=== PATIENT | female | born 1950 | race Caucasian/White ===

== ENCOUNTER 2024-01-18 15:21 | Emergency (ER) | payer MEDICARE, OTHER, SELFPAY ==
[2024-01-18 15:28] VITALS: BP 96/68
[2024-01-18 15:55] LABS: % Basophils 0.6 % (0-2); % Eosinophils 1.7 % (0-6); % Immature Granulocytes 0.3 % (0-0.5); % Lymphocytes 36.9 % (20.5-51.1); % Monocytes 6.3 % (1.7-9.3); % Neutrophils 54.2 % (42.2-75.2); Absolute Basophils 0.1 10^3/uL (0-0.2); Absolute Eosinophils 0.2 10^3/uL (0-0.7); Absolute Lymphocytes 3.8 10^3/uL (1.2-3.4); Absolute Monocytes 0.7 10^3/uL (0.1-0.6); Absolute Neutrophils 5.6 10^3/uL (1.4-6.5); Hematocrit 46.1 % (37.0-47.0); Hemoglobin 16.2 g/dL (12.0-16.0); Mean Corp Hgb Conc. 35.1 g/dL (33.0-37.0); Mean Corpuscular Hgb 30.8 pg (27.0-31.0); Mean Corpuscular Volume 87.6 fL (81.0-99.0); Mean Platelet Volume 11.9 fL (7.4-10.4); Nucleated Red Blood Cells % 0 %; Platelet Count 236 10^3/uL (130-400); Red Blood Cell Count 5.26 10^6/uL (4.20-5.40); Red Cell Dist. Width 12.8 % (11.5-14.5); White Blood Cell Count 10.3 10^3/uL (4.8-10.8)
[2024-01-18 16:01] LABS: ALT (SGPT) 32 U/L (0-35); AST (SGOT) 34 U/L (14-36); Albumin 5.4 g/dl (3.5-5.0); Alkaline Phosphatase 101 U/L (38-126); Blood Urea Nitrogen 29 mg/dl (7-17); Calcium 10.8 mg/dl (8.4-10.2); Carbon Dioxide 26 mmol/L (22-30); Chloride 101 mmol/L (98-107); Glucose 195 mg/dl (70-99); Lipase 76 U/L (23-300); Potassium 4.2 mmol/L (3.5-5.1); Sodium 139 mmol/L (135-145); Total Bilirubin 0.9 mg/dl (0.2-1.3); Total Protein 7.8 g/dl (6.3-8.2); eGFR > 60.00
--- NOTE | 2024-01-18 17:20 | EDRN ---
the pt was brought back to ED Bed #8 via wheel chair moaning in pain, the pt got up out of wheel chair and walked into the bathroom to have a bowel movement, the pt stated to this RN, 'Help me help me i am cold i am cold please get me warm blankets,
please get me warm blankets', the pt was able to ambulate back to the stretcher, the pt got comfortable in the stretcher with patient gown on, and this RN started to hook the pt up to the monitor, while this RN was placing the pt on the cardiac
monitor the pt stated to this RN, 'Oh oh i have to poop i have to poop please help me i have to poop right now let me get up', this RN unhooked the pt from the monitor and the pt hurried into the bathroom, will continue to monitor the pt closely
[2024-01-18 17:59] VITALS: BP 131/71; BMI 25.7
[2024-01-18 18:08] VITALS: BP 148/58
[2024-01-18 19:00] VITALS: BP 150/60
--- NOTE | 2024-01-18 19:18 | ED.GENMED ---
History of Present Illness
General
Chief Complaint: Abdominal Pain
Source: patient
Time Seen by Provider: 01/18/24 19:04
History of Present Illness
History of Present Illness:
73-year-old female presents to the emergency room complaining of abdominal pain. Patient states that she has a history of pancreatitis and was concerned that she was having an exacerbation. Patient states the pain is generalized. Began today.
She has nausea but has not been vomiting. She was able to tolerate liquids throughout the day. She denies alcohol use. Patient has had some diarrhea but none recently. Patient states when she has pancreatitis her white blood cell count is
typically very high and her potassium level gets very low.
Past History
Past History
ED Past Medical History: HTN, Hypercholesterolemia, Psychiatric (Anxiety, Depression) and Other (Pancreatitis, Eczema)
ED Past Surgical History: Cholecystectomy, and Orthopedic (Surendra carpal tunnel, rotator cuff, R wrist surgery)
Social History
Tobacco: Former smoker
Alcohol: None
Drug: None
Personal: Single
Living: alone
Employment: Retired
Family History
Family History: Other (Noncontributory)
Phy Exam
Physical Exam
Physical Exam:
General: Awake, Alert, Oriented X3. No acute distress.
Vitals: unremarkable
Head: Atraumatic
Eyes: Pupils equal, EOMI
Throat: Airway intact, no exudates
Neck: Trachea midline
Lungs: Clear and equal b/l
Heart: Regular rate, no murmurs
Abd: Soft, mild suprapubic tenderness with palpable bladder patient states she needs to urinate badly at the time of my examination, no pulsatile mass
Neuro: Nonfocal
Skin: Warm, dry, no rash
Extremities: pulses equal b/l, no edema
Course
Orders/Labs/Results
Orders:
Orders
01/18/24 15:40
Complete Blood Count/With Diff Urgent
Comprehensive Metabolic Panel Urgent
Lipase Urgent
Abnormal Lab Results
01/18/24
15:40
Hgb 16.2 H g/dL
(12.0-16.0)
MPV 11.9 H fL
(7.4-10.4)
Absolute Lymphs (auto) 3.8 H 10^3/uL
(1.2-3.4)
Absolute Monos (auto) 0.7 H 10^3/uL
(0.1-0.6)
BUN 29 H mg/dl
(7-17)
Glucose 195 H mg/dl
(70-99)
Calcium 10.8 H mg/dl
(8.4-10.2)
Albumin 5.4 H g/dl
(3.5-5.0)
01/18/24 15:40
01/18/24 15:40
Vital Signs
Initial and Last Documented VS:
Initial Vital Signs
Pulse Resp BP Pulse Ox
62 24 96/68 97
01/18/24 15:28 01/18/24 15:28 01/18/24 15:28 01/18/24 15:28
Last Documented Vital Signs
Temp Pulse Resp BP Pulse Ox
98.1 F 59 21 148/58 97
01/18/24 17:59 01/18/24 18:30 01/18/24 18:30 01/18/24 18:08 01/18/24 18:30
MDM/Problems Addressed
Differential Diagnosis Includes:
Pancreatitis, appendicitis, diverticulitis, gastroenteritis
MDM/Problems Addressed:
Patient's labs are normal. Patient states that she feels better now than when she first arrived. She is reassured that her labs do not show an elevated lipase, high white blood cell count or low potassium. Discussed obtaining a CT scan of her
abdomen pelvis which she declines because she has had several in the past. Because she is feeling better she would like to be discharged home.
*Pulse Oximetry
Patient hypoxic: no
*Critical Care Note
Total Time (30-74mins, 75-104mins- exclusive of procedures): Not Applicable
ED Attending Note
-
Portions of this chart may have been created with voice recognition software.� Occasional wrong word or��sound alike� substitutions may have occurred due to the inherent limitations of voice recognition software.
Discharge Plan
Departure
Patient Disposition: Home (Routine Discharge)
Date of Disposition: 01/18/24
Time of Disposition: 19:18
Patient with high blood pressure during this ER visit?: No
Condition: Good
Discharge Problem:
Unspecified abdominal pain
Instructions: Abdominal Pain
Prescriptions:
No Action
aspirin 81 MG tablet,delayed release (DR/EC)
81 mg PO DAILY
ezetimibe 10 MG tablet
10 mg PO DAILY
rosuvastatin 20 MG tablet
20 mg PO DAILY
quetiapine [Seroquel] 300 MG tablet
150 mg PO HS
calcium carbonate 600 MG tablet
1,200 mg PO DAILY
amlodipine 10 MG tablet
10 mg PO DAILY
K2 Plus D3 1 EACH tablet
2,500 mcg PO DAILY
biotin 1,000 MCG tablet,chewable
1,500 mcg PO DAILY
citalopram 20 MG tablet
20 mg PO DAILY
finasteride 1 MG tablet
1 mg PO DAILY
metoprolol succinate [Toprol XL] 50 mg Tablet Extended Release 24 Hr
50 mg PO DAILY
cetirizine [Zyrtec] 10 mg Tablet
10 mg PO QPM
fexofenadine 180 mg Tablet
180 mg PO DAILY
pantoprazole 40 mg Tablet,Delayed Release (Dr/Ec)
40 mg PO DAILY
potassium chloride 20 mEq tablet extended release
20 meq PO BID Qty: 8 0RF
hydromorphone [Dilaudid] 2 mg tablet
2 mg PO Q6H PRN (Reason: Pain) Qty: 5 0RF
Activity Restrictions/Additional Instructions:
Please follow up with your primary care provider and return to ER if symptoms worsen.
Interventions
Interventions:
*Risk Screen - Suicide Last Done: 01/18/24 17:59
*General Assessment Last Done: 01/18/24 17:59
*Neglect/Abuse Screening Last Done: 01/18/24 17:59
ED- Fall Risk Assessment Last Done: 01/18/24 17:59
*ED COVID-19 Vaccine History Last Done: 01/18/24 17:59
BK-Rfuome-Awljqrjvlz Assessment Last Done: 01/18/24 17:59
Discharge Date and Time
Print Language: JAPANESE
[2024-01-18] MEDS: TYLENOL 1000 MG PO (19:40)
== END 2024-01-18 19:56 | disposition home or self-care (01) ==
LOC: EMR 15:21
PROVIDERS: Emergency Medicine; EMERGENCY PHYSICIAN Emergency Medicine; FAMILY PHYSICIAN Internal Medicine
DX: R10.84 Generalized abdominal pain (principal); I10 Essential (primary) hypertension; E78.00 Pure hypercholesterolemia, unspecified; K86.1 Other chronic pancreatitis; F32.A Depression, unspecified; F41.9 Anxiety disorder, unspecified; L30.9 Dermatitis, unspecified; Z90.49 Acquired absence of other specified parts of digestive tract; Z87.891 Personal history of nicotine dependence
CPT/HCPCS: 99283; 80053; 83690; 85025

== ENCOUNTER 2024-01-29 01:11 | Inpatient (IN) | payer MEDICARE, OTHER, SELFPAY ==
[2024-01-28] VITALS (7 sets, daily range): BP systolic 125–180; BP diastolic 61–129; BMI 25.6
[2024-01-28 18:30] LABS: % Basophils 0.2 % (0-2); % Eosinophils 0.1 % (0-6); % Immature Granulocytes 0.6 % (0-0.5); % Monocytes 5.8 % (1.7-9.3); % Neutrophils 78.3 % (42.2-75.2); Absolute Immature Granulocytes 0.1 10^3/uL (0-0.05); Absolute Lymphocytes 2.5 10^3/uL (1.2-3.4); Absolute Neutrophils 13.3 10^3/uL (1.4-6.5); Hematocrit 47.7 % (37.0-47.0); Hemoglobin 17.4 g/dL (12.0-16.0); Mean Corp Hgb Conc. 36.5 g/dL (33.0-37.0); Mean Corpuscular Hgb 30.2 pg (27.0-31.0); Mean Corpuscular Volume 82.7 fL (81.0-99.0); Mean Platelet Volume 11.4 fL (7.4-10.4); Nucleated Red Blood Cells % 0 %; Platelet Count 246 10^3/uL (130-400); Red Blood Cell Count 5.77 10^6/uL (4.20-5.40)
[2024-01-28 19:01] LABS: Alkaline Phosphatase 155 U/L (38-126); Blood Urea Nitrogen 22 mg/dl (7-17); Calcium 10.4 mg/dl (8.4-10.2); Carbon Dioxide 25 mmol/L (22-30); Chloride 95 mmol/L (98-107); Estimated Creatinine Clearance 44 ml/min; Glucose 157 mg/dl (70-99); Lipase 342 U/L (23-300); Potassium 3.4 mmol/L (3.5-5.1); Sodium 134 mmol/L (135-145); Total Bilirubin 1.5 mg/dl (0.2-1.3); Total Protein 7.4 g/dl (6.3-8.2); eGFR > 60.00
[2024-01-28 19:17] LABS: ALT (SGPT) 992 U/L (0-35)
[2024-01-28 19:34] LABS: AST (SGOT) 789 U/L (14-36)
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
[2024-01-28] MEDS: NSS 1000 IV (19:51)
[2024-01-28] MEDS: DILAUDID 0.5 MG IV ×2 (19:54→22:00)
[2024-01-28 20:17] LABS: Acetaminophen < 10 ug/ml (10-30)
[2024-01-28 20:21] LABS: INR 1.06; PT 13.6 Sec (11.4-14.6)
[2024-01-28] MEDS: ZOFRAN 4 MG IV ×2 (20:38→22:13)
[2024-01-28 20:46] LABS: APTT 22.8 Sec (23.4-35.0)
[2024-01-29] VITALS (8 sets, daily range): BP systolic 116–167; BP diastolic 54–75; PULSE 63–64; O2SAT 98; BMI 24.3; BMI 24.5
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
[2024-01-29] MEDS: LR 1000 IV ×3 (02:36→19:21)
[2024-01-29] MEDS: TORADOL 10 MG IV ×3 (02:39→16:23)
[2024-01-29] MEDS: SENOKOT 17.2 MG PO ×2 (02:47→22:28)
[2024-01-29 05:27] LABS: Hematocrit 43.4 % (37.0-47.0); Hemoglobin 15.3 g/dL (12.0-16.0); Mean Corp Hgb Conc. 35.3 g/dL (33.0-37.0); Mean Corpuscular Hgb 30.8 pg (27.0-31.0); Mean Corpuscular Volume 87.3 fL (81.0-99.0); Mean Platelet Volume 11.7 fL (7.4-10.4); Platelet Count 174 10^3/uL (130-400); Red Blood Cell Count 4.97 10^6/uL (4.20-5.40); Red Cell Dist. Width 12.9 % (11.5-14.5); White Blood Cell Count 15.2 10^3/uL (4.8-10.8)
[2024-01-29 05:43] LABS: ALT (SGPT) 703 U/L (0-35); AST (SGOT) 404 U/L (14-36); Albumin 3.9 g/dl (3.5-5.0); Alkaline Phosphatase 120 U/L (38-126); Chloride 99 mmol/L (98-107); Direct Bilirubin 0.1 mg/dl (0.0-0.4); Estimated Creatinine Clearance 39 ml/min; Potassium 3.1 mmol/L (3.5-5.1); Sodium 135 mmol/L (135-145); Total Bilirubin 1.3 mg/dl (0.2-1.3); eGFR > 60.00
[2024-01-29 05:54] LABS: Blood Urea Nitrogen 22 mg/dl (7-17); Calcium 9.3 mg/dl (8.4-10.2); Carbon Dioxide 31 mmol/L (22-30); Glucose 109 mg/dl (70-99); Magnesium 1.9 mg/dl (1.6-2.3); Phosphorus 3.8 mg/dl (2.5-4.5)
[2024-01-29] MEDS: TOPROL XL 50 MG PO (09:21)
[2024-01-29] MEDS: ASPIR LOW (ENTERIC COATED) 81 MG PO (09:21)
[2024-01-29] MEDS: COLACE 100 MG PO ×2 (09:21→22:28)
[2024-01-29] MEDS: TYLENOL 1000 MG PO ×3 (09:22→22:28)
[2024-01-29] MEDS: NSS (PRESERVATIVE FREE) 10 ML IV (09:25)
[2024-01-29] MEDS: PROTONIX IV 40 MG IV (09:25)
[2024-01-29] MEDS: CELEXA 20 MG PO (09:29)
[2024-01-29] MEDS: DILAUDID 0.5 MG IV ×2 (10:10→22:32)
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
[2024-01-29 12:02] LABS: Salicylate < 1.0 mg/dl (2.0-20.0)
[2024-01-29] MEDS: FLEXERIL 5 MG PO (12:32)
[2024-01-30] MEDS: LR 1000 IV ×3 (02:44→22:56)
[2024-01-30 05:05] VITALS: BMI 24.9
[2024-01-30] MEDS: FLEXERIL 5 MG PO ×2 (06:12→15:58)
[2024-01-30] MEDS: DILAUDID 0.5 MG IV ×2 (06:12→21:45)
[2024-01-30 07:20] VITALS: BP 106/70
[2024-01-30] MEDS: TOPROL XL 50 MG PO (08:38)
[2024-01-30] MEDS: CELEXA 20 MG PO (08:38)
[2024-01-30] MEDS: NSS (PRESERVATIVE FREE) 10 ML IV (08:39)
[2024-01-30] MEDS: COLACE 100 MG PO ×2 (08:39→20:24)
[2024-01-30] MEDS: ASPIR LOW (ENTERIC COATED) 81 MG PO (08:39)
[2024-01-30] MEDS: TYLENOL 1000 MG PO ×3 (08:39→21:10)
[2024-01-30] MEDS: PROTONIX IV 40 MG IV (08:40)
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
[2024-01-30 11:54] LABS: Hematocrit 38.7 % (37.0-47.0); Hemoglobin 13.6 g/dL (12.0-16.0); Mean Corp Hgb Conc. 35.1 g/dL (33.0-37.0); Mean Corpuscular Hgb 30.3 pg (27.0-31.0); Mean Corpuscular Volume 86.2 fL (81.0-99.0); Mean Platelet Volume 11.5 fL (7.4-10.4); Platelet Count 175 10^3/uL (130-400); Red Blood Cell Count 4.49 10^6/uL (4.20-5.40); Red Cell Dist. Width 12.7 % (11.5-14.5); White Blood Cell Count 11.9 10^3/uL (4.8-10.8)
--- NOTE | 2024-01-30 11:57 | CM ---
Reviewed the chart notes and spoke with the patient at the bedside. The patient resides alone in a 2 story home with one step to enter. The patient has a first floor master suite. The patient reports no DME/VN/SNF in the past. The patient
confirmed her pharmacy of choice is the [facility]. PT recommending SNF. Discuss with the patient PT's recommendation from yesterday's evaluation. Patient resides alone and does not have family in the area. Patient became hysterical,
crying , pulling at her hair, and pounding the bed with her fists screaming 'I'm not going to live in a alf'. CM attempt to calm the patient with discussing that if the pain is better controlled at discharge she may then benefit from
going home with in-home PT/OT. Patient willing to work with PT during her stay to be able to return home. CM continues to be available to patient/family and is monitoring medical plan for needs at discharge.
Plan: Discharge plans will depend on the patient's progress.
[2024-01-30 12:07] LABS: ALT (SGPT) 465 U/L (0-35); AST (SGOT) 232 U/L (14-36); Albumin 3.5 g/dl (3.5-5.0); Alkaline Phosphatase 146 U/L (38-126); Direct Bilirubin 0.1 mg/dl (0.0-0.4); Total Protein 5.6 g/dl (6.3-8.2)
[2024-01-30 12:48] LABS: Blood Urea Nitrogen 12 mg/dl (7-17); Calcium 8.8 mg/dl (8.4-10.2); Carbon Dioxide 33 mmol/L (22-30); Chloride 99 mmol/L (98-107); Estimated Creatinine Clearance 51 ml/min; Glucose 96 mg/dl (70-99); Potassium 2.7 mmol/L (3.5-5.1); Sodium 135 mmol/L (135-145); eGFR > 60.00
[2024-01-30 13:45] VITALS: BP 149/71; PULSE 58; O2SAT 98
[2024-01-30] MEDS: KCL 40 MEQ PO ×2 (13:58→15:55)
[2024-01-30] MEDS: KLONOPIN 1 MG PO (13:59)
[2024-01-30 14:37] VITALS: BP 149/71; PULSE 58; O2SAT 98
[2024-01-30 15:25] VITALS: BP 149/61
[2024-01-30] MEDS: HEPARIN 5000 UNITS SC ×2 (16:04→23:01)
[2024-01-30] MEDS: SENOKOT 17.2 MG PO (20:24)
[2024-01-30 20:35] LABS: Hepatitis B Surface Antigen Negative (Negative)
[2024-01-30 20:52] LABS: Hepatitis B Surface Antibody Negative; Hepatitis C Antibody Negative (Negative)
[2024-01-30] MEDS: ZOFRAN 4 MG IV (21:44)
[2024-01-30 23:02] VITALS: BP 162/84
[2024-01-30 23:11] VITALS: BP 192/88
[2024-01-31 00:27] LABS: Hepatitis A IgM Antibody Negative (Negative)
--- NOTE | 2024-01-31 01:01 | PTCARENOTE ---
Pt was nauseous after eating dinner as well with dealing with increased 8/10 back pain. PRN Zofran and Dilaudid provided per SEP.
[2024-01-31] MEDS: FLEXERIL 5 MG PO ×2 (04:55→18:27)
[2024-01-31 05:03] VITALS: BMI 25.3
[2024-01-31 05:46] VITALS: BP 179/84
[2024-01-31] MEDS: TOPROL XL 50 MG PO (05:56)
[2024-01-31] MEDS: TORADOL 10 MG IV ×2 (05:56→15:09)
[2024-01-31] MEDS: LR 1000 IV ×3 (05:59→23:13)
--- NOTE | 2024-01-31 05:59 | W.PN.UPDATE ---
Update Note
Progress Note Update
BP noted now to be >160 systolic. Added back home dose of amlodipine which had been held due to borderline hypotension on admission.
--- NOTE | 2024-01-31 06:04 | PTCARENOTE ---
BPs elevated overnight- pts pain level ranged anywhere from a 6-9/10. PRNs were given routinely. CHENG Garcia OK'd to give 0800 Toprol XL 50mg early and added her home Norvasc to the MAR.
[2024-01-31 06:52] LABS: Hematocrit 47.6 % (37.0-47.0); Hemoglobin 16.7 g/dL (12.0-16.0); Mean Corp Hgb Conc. 35.1 g/dL (33.0-37.0); Mean Corpuscular Hgb 30.8 pg (27.0-31.0); Mean Corpuscular Volume 87.7 fL (81.0-99.0); Mean Platelet Volume 11.6 fL (7.4-10.4); Platelet Count 193 10^3/uL (130-400); Red Blood Cell Count 5.43 10^6/uL (4.20-5.40); Red Cell Dist. Width 12.5 % (11.5-14.5); White Blood Cell Count 12.5 10^3/uL (4.8-10.8)
[2024-01-31 06:58] LABS: ALT (SGPT) 392 U/L (0-35); AST (SGOT) 90 U/L (14-36); Albumin 4.4 g/dl (3.5-5.0); Alkaline Phosphatase 164 U/L (38-126); Blood Urea Nitrogen 10 mg/dl (7-17); Calcium 9.8 mg/dl (8.4-10.2); Carbon Dioxide 35 mmol/L (22-30); Chloride 93 mmol/L (98-107); Estimated Creatinine Clearance 59 ml/min; Glucose 131 mg/dl (70-99); Potassium 3.4 mmol/L (3.5-5.1); Sodium 135 mmol/L (135-145); Total Bilirubin 0.7 mg/dl (0.2-1.3); Total Protein 6.9 g/dl (6.3-8.2); eGFR > 60.00
[2024-01-31 07:30] VITALS: BP 174/85
[2024-01-31] MEDS: COLACE 100 MG PO ×2 (08:58→21:06)
[2024-01-31] MEDS: ASPIR LOW (ENTERIC COATED) 81 MG PO (08:58)
[2024-01-31] MEDS: NSS (PRESERVATIVE FREE) 10 ML IV (08:58)
[2024-01-31] MEDS: CELEXA 20 MG PO (08:58)
[2024-01-31] MEDS: PROTONIX IV 40 MG IV (08:58)
[2024-01-31] MEDS: TYLENOL 1000 MG PO ×3 (08:58→21:06)
[2024-01-31] MEDS: NORVASC 10 MG PO (08:59)
[2024-01-31] MEDS: HEPARIN 5000 UNITS SC ×3 (08:59→23:14)
[2024-01-31] MEDS: KCL 40 MEQ PO (09:19)
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
[2024-01-31] MEDS: MIRALAX 34 GRAMS PO (12:08)
[2024-01-31 12:36] VITALS: BP 121/55; O2SAT 98
--- NOTE | 2024-01-31 14:41 | CM ---
Reviewed the chart notes and spoke with the patient at the bedside. Attempted to discuss area SNFs/rehab. Patient very upset, again pulling on hair and stating 'I'm not ready to discharge' and 'I only want to go to a facility that specializes in
backs'. CM attempted to explain that all PTs are educated and trained to rehab all parts of the body. Provided list of area SNFs to the patient. Patient wants to speak with her niece before she provides the CM with a list of acceptable facilities
for referral. Patient did request a referral be sent to [facility]. Referral will be sent. CM continues to be available to patient/family and is monitoring medical plan for needs at discharge.
Plan: Discharge to SNF/rehab once bed found.
[2024-01-31 15:42] VITALS: BP 112/58
[2024-01-31] MEDS: SENOKOT 17.2 MG PO (21:06)
[2024-01-31] MEDS: DULCOLAX 10 MG RECTAL (23:13)
[2024-01-31 23:16] VITALS: BP 191/76
[2024-02-01] MEDS: TORADOL 10 MG IV ×3 (01:00→23:23)
[2024-02-01 02:26] VITALS: BP 160/80
[2024-02-01 06:00] VITALS: BMI 25.2
[2024-02-01 06:49] LABS: Hematocrit 44.6 % (37.0-47.0); Hemoglobin 16.1 g/dL (12.0-16.0); Mean Corp Hgb Conc. 36.1 g/dL (33.0-37.0); Mean Corpuscular Hgb 30.4 pg (27.0-31.0); Mean Corpuscular Volume 84.2 fL (81.0-99.0); Mean Platelet Volume 11.8 fL (7.4-10.4); Platelet Count 215 10^3/uL (130-400); Red Cell Dist. Width 12.6 % (11.5-14.5); White Blood Cell Count 15.1 10^3/uL (4.8-10.8)
[2024-02-01 07:22] LABS: ALT (SGPT) 218 U/L (0-35); AST (SGOT) 38 U/L (14-36); Albumin 3.8 g/dl (3.5-5.0); Alkaline Phosphatase 131 U/L (38-126); Blood Urea Nitrogen 17 mg/dl (7-17); Calcium 9.4 mg/dl (8.4-10.2); Carbon Dioxide 31 mmol/L (22-30); Chloride 95 mmol/L (98-107); Estimated Creatinine Clearance 59 ml/min; Glucose 103 mg/dl (70-99); Potassium 3.1 mmol/L (3.5-5.1); Sodium 134 mmol/L (135-145); Total Bilirubin 0.8 mg/dl (0.2-1.3); Total Protein 6.2 g/dl (6.3-8.2); eGFR > 60.00
[2024-02-01 07:25] VITALS: BP 114/58
[2024-02-01] MEDS: LR 1000 IV ×2 (07:36→09:29)
[2024-02-01] MEDS: TYLENOL 1000 MG PO ×3 (09:25→21:14)
[2024-02-01] MEDS: KCL 40 MEQ PO ×2 (09:25→12:31)
[2024-02-01] MEDS: TOPROL XL 50 MG PO (09:26)
[2024-02-01] MEDS: ASPIR LOW (ENTERIC COATED) 81 MG PO (09:26)
[2024-02-01] MEDS: COLACE 100 MG PO ×2 (09:27→21:13)
[2024-02-01] MEDS: MIRALAX 17 GRAMS PO (09:27)
[2024-02-01] MEDS: NORVASC 10 MG PO (09:27)
[2024-02-01] MEDS: CELEXA 20 MG PO (09:27)
[2024-02-01] MEDS: NSS (PRESERVATIVE FREE) 10 ML IV (09:28)
[2024-02-01] MEDS: HEPARIN 5000 UNITS SC ×3 (09:28→23:51)
[2024-02-01] MEDS: PROTONIX IV 40 MG IV (09:28)
[2024-02-01] MEDS: ZOFRAN 4 MG IV ×2 (10:40→23:09)
[2024-02-01] MEDS: ROXICODONE 5 MG PO ×3 (10:45→21:14)
[2024-02-01 12:15] VITALS: BP 139/104; PULSE 57; O2SAT 97
[2024-02-01 12:20] VITALS: BP 139/104; PULSE 55; O2SAT 98
[2024-02-01] MEDS: LIDOCAINE 4% PATCH 1 PATCH TOPICAL (12:32)
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
--- NOTE | 2024-02-01 15:19 | CM ---
Reviewed the chart notes and spoke with the patient at the bedside. Referrals sent to [facility], [facility] and [facility]. [facility] no beds. Awaiting on [facility] and [facility]. CM continues to be available to patient/family and is monitoring medical plan for needs at
discharge.
Plan: Discharge to SNF/rehab once bed found. No precert required.
[2024-02-01 15:20] VITALS: BP 153/70
[2024-02-01] MEDS: KLONOPIN 1 MG PO (16:35)
[2024-02-01] MEDS: SENOKOT 17.2 MG PO (21:13)
[2024-02-01] MEDS: FLEXERIL 5 MG PO (22:24)
[2024-02-01 23:17] VITALS: BP 146/80
[2024-02-02 05:26] VITALS: BMI 25.3
[2024-02-02] MEDS: ROXICODONE 5 MG PO ×2 (05:44→15:23)
[2024-02-02 07:30] VITALS: BP 156/75
[2024-02-02 07:30] LABS: Hematocrit 46.9 % (37.0-47.0); Hemoglobin 17.2 g/dL (12.0-16.0); Mean Corp Hgb Conc. 36.7 g/dL (33.0-37.0); Mean Corpuscular Hgb 30.4 pg (27.0-31.0); Mean Platelet Volume 10.8 fL (7.4-10.4); Platelet Count 244 10^3/uL (130-400); Red Blood Cell Count 5.65 10^6/uL (4.20-5.40); Red Cell Dist. Width 12.9 % (11.5-14.5); White Blood Cell Count 11.4 10^3/uL (4.8-10.8)
[2024-02-02 08:02] LABS: ALT (SGPT) 163 U/L (0-35); AST (SGOT) 31 U/L (14-36); Albumin 4.5 g/dl (3.5-5.0); Alkaline Phosphatase 143 U/L (38-126); Blood Urea Nitrogen 14 mg/dl (7-17); Calcium 10.1 mg/dl (8.4-10.2); Carbon Dioxide 29 mmol/L (22-30); Chloride 93 mmol/L (98-107); Estimated Creatinine Clearance 59 ml/min; Glucose 122 mg/dl (70-99); Potassium 3.7 mmol/L (3.5-5.1); Sodium 133 mmol/L (135-145); Total Bilirubin 0.6 mg/dl (0.2-1.3); Total Protein 7.1 g/dl (6.3-8.2); eGFR > 60.00
[2024-02-02] MEDS: LIDOCAINE 4% PATCH 1 PATCH TOPICAL (09:42)
[2024-02-02] MEDS: NSS (PRESERVATIVE FREE) 10 ML IV (09:43)
[2024-02-02] MEDS: NORVASC 10 MG PO (09:43)
[2024-02-02] MEDS: ASPIR LOW (ENTERIC COATED) 81 MG PO (09:43)
[2024-02-02] MEDS: PROTONIX IV 40 MG IV (09:43)
[2024-02-02] MEDS: TOPROL XL 50 MG PO (09:44)
[2024-02-02] MEDS: TYLENOL 1000 MG PO ×2 (09:44→15:04)
[2024-02-02] MEDS: COLACE 100 MG PO (09:44)
[2024-02-02] MEDS: HEPARIN 5000 UNITS SC ×2 (09:44→15:04)
[2024-02-02] MEDS: CELEXA 20 MG PO (09:44)
[2024-02-02] MEDS: MIRALAX 17 GRAMS PO (09:45)
[2024-02-02] MEDS: FLEXERIL 5 MG PO (10:07)
[2024-02-02 11:42] VITALS: BP 106/63; BP 108/63; PULSE 59; PULSE 62
[2024-02-02] MEDS: TORADOL 10 MG IV (11:48)
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
[2024-02-02 14:29] LABS: COVID-19 Antigen Negative (Negative)
[2024-02-02 15:00] VITALS: BP 131/62
[2024-02-02] MEDS: KLONOPIN 1 MG PO (17:28)
--- NOTE | 2024-02-02 17:34 | PTCARENOTE ---
Patient discharged to [facility], transported by [facility]. This RN called report to Chloe at facility. Patient's IV removed, belongings and brace gathered in room and handed to EMS team. PRN Klonopin given to patient prior to transport,
this RN called report to facility to update them on administration of med.
[2024-02-03 17:14] LABS: JAK2 Qual Mutation by PCR Not Detected; JAK2-PCR Source Whole Blood
== END 2024-02-02 17:41 | DRG 552 ==
LOC: 2 NORTH 01:11
PROVIDERS: Nurse Practitioner; Student in an Organized Health Care Education/Training Program; ADMITTING PHYSICIAN Hospitalist; ATTENDING PHYSICIAN Internal Medicine; CONSULT PHYSICIAN Internal Medicine; EMERGENCY PHYSICIAN Emergency Medicine; FAMILY PHYSICIAN Internal Medicine
DX: S22.080A Wedge compression fracture of T11-T12 vertebra, initial encounter for closed fracture (principal); E87.1 Hypo-osmolality and hyponatremia; J90 Pleural effusion, not elsewhere classified; K76.0 Fatty (change of) liver, not elsewhere classified; E66.9 Obesity, unspecified; F32.A Depression, unspecified; I10 Essential (primary) hypertension; M48.04 Spinal stenosis, thoracic region; M54.50 Low back pain, unspecified; V48.5XXA Car driver injured in noncollision transport accident in traffic accident, initial encounter; Y92.410 Unspecified street and highway as the place of occurrence of the external cause; D75.1 Secondary polycythemia; E78.00 Pure hypercholesterolemia, unspecified; E83.52 Hypercalcemia; E87.6 Hypokalemia; E86.1 Hypovolemia; F41.9 Anxiety disorder, unspecified; G89.29 Other chronic pain; K59.00 Constipation, unspecified; K21.9 Gastro-esophageal reflux disease without esophagitis; R53.83 Other fatigue; R63.0 Anorexia; R79.89 Other specified abnormal findings of blood chemistry; Z68.25 Body mass index [BMI] 25.0-25.9, adult; Z79.82 Long term (current) use of aspirin; Z79.899 Other long term (current) drug therapy; Z87.19 Personal history of other diseases of the digestive system; Z87.891 Personal history of nicotine dependence; Z90.49 Acquired absence of other specified parts of digestive tract; Z88.8 Allergy status to other drugs, medicaments and biological substances
CPT/HCPCS: 72072; 72146; 74177; 74183; 76700; 80053; 80143; 80179; 81270; 82248; 83690; 83735; 84100; 85025; 85027; 85610; 85730; 86705; 86706; 86709; 86803; 87340; 87811; 96361; 96374; 96375; 96376; 97163; 97166; 97530; 97535; 99285; A9575; Q9967

== ENCOUNTER 2024-03-21 09:44 | Inpatient (IN) | payer MEDICARE, OTHER, SELFPAY ==
[2024-03-19 17:26] VITALS: BP 150/72
[2024-03-19 17:35] VITALS: BMI 23.9
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
[2024-03-19 17:40] VITALS: BP 172/89
[2024-03-19] MEDS: NSS 1000 IV ×3 (17:41→23:26)
[2024-03-19 17:49] LABS: % Basophils 0.4 % (0-2); % Eosinophils 2.4 % (0-6); % Immature Granulocytes 0.8 % (0-0.5); % Lymphocytes 15.8 % (20.5-51.1); % Monocytes 4.9 % (1.7-9.3); % Neutrophils 75.7 % (42.2-75.2); Absolute Basophils 0.1 10^3/uL (0-0.2); Absolute Eosinophils 0.5 10^3/uL (0-0.7); Absolute Immature Granulocytes 0.2 10^3/uL (0-0.05); Absolute Lymphocytes 3.1 10^3/uL (1.2-3.4); Absolute Neutrophils 14.8 10^3/uL (1.4-6.5); Hematocrit 42.9 % (37.0-47.0); Hemoglobin 15.4 g/dL (12.0-16.0); Mean Corp Hgb Conc. 35.9 g/dL (33.0-37.0); Mean Corpuscular Hgb 29.9 pg (27.0-31.0); Mean Corpuscular Volume 83.3 fL (81.0-99.0); Mean Platelet Volume 10.9 fL (7.4-10.4); Nucleated Red Blood Cells % 0 %; Platelet Count 302 10^3/uL (130-400); Red Blood Cell Count 5.15 10^6/uL (4.20-5.40); Red Cell Dist. Width 12.8 % (11.5-14.5); White Blood Cell Count 19.5 10^3/uL (4.8-10.8)
[2024-03-19] MEDS: ZOFRAN 4 MG IV (17:53)
[2024-03-19] MEDS: DILAUDID 1 MG IV ×2 (17:53→18:46)
[2024-03-19 18:00] VITALS: BP 164/82
[2024-03-19 18:03] LABS: ALT (SGPT) 32 U/L (0-35); AST (SGOT) 33 U/L (14-36); Albumin 5.1 g/dl (3.5-5.0); Alkaline Phosphatase 106 U/L (38-126); Blood Urea Nitrogen 29 mg/dl (7-17); Calcium 10.5 mg/dl (8.4-10.2); Carbon Dioxide 23 mmol/L (22-30); Chloride 99 mmol/L (98-107); Estimated Creatinine Clearance 39 ml/min; Glucose 178 mg/dl (70-99); Potassium 3.6 mmol/L (3.5-5.1); Sodium 141 mmol/L (135-145); Total Bilirubin 0.6 mg/dl (0.2-1.3); Total Protein 7.7 g/dl (6.3-8.2); eGFR > 60.00
[2024-03-19 18:04] LABS: Lipase 204 U/L (23-300)
[2024-03-19 19:00] VITALS: BP 168/76
[2024-03-19 19:02] LABS: Urine Albumin Negative (Neg - Trace); Urine Bilirubin Negative (Negative); Urine Character Clear (Clear); Urine Color Straw; Urine Glucose Negative (Negative); Urine Ketone Negative (Negative); Urine Leukocyte Negative (Negative); Urine Nitrite Negative (Negative); Urine Occult Blood Negative (Negative); Urine Urobilinogen Negative (Neg - 1+)
[2024-03-19 19:13] LABS: Lactic Acid 3.1 mmol/L (0.7-2.0)
--- NOTE | 2024-03-19 21:23 | HPS.HSE ---
Family Physician
-
Family Physician: Rajni Granados
Chief Complaint
-
Abdominal Pain
History of Present Illness
Patient is a 73 y/o female past medical history of chronic abdominal pain, recent compression fracture, and hypertension who presents with acute worsening of her abdominal pain. Patient is pain-free upon my evaluation after two dose of Dilaudid
given in the emergency department. She reports this morning she developed worsening central abdominal pain. She admits to some associated nausea. She reports her bowel movements have been alternating between constipation and diarrhea. She reports
significant sweats with severe pain but denies recorded fevers.
Medical History
Past Medical History
Past Medical History: Reports Other
Additional Past Medical History:
Hypertension
Dyslipidemia
Anxiety / Depression
Obesity
Chronic Abdominal Pain / 'Recurrent Pancreatitis'
Past Surgical History: Reports Other
Additional Past Surgical History:
Cholecystectomy
Right Wrist ORIF
Social History
Tobacco: Former Smoker (Quit smoking 2 years ago. Approx 50 pack years total use.)
Alcohol: None
Drug: Marijuana (About once weekly.)
Family History
Family History: Other (Sister: Brain Sarcoma Mother: Longevity)
Allergies / Home Medications
Allergies reflects when Allergies were last updated in [facility].
Home Medications with original date entered in [facility]
Allergy/Medication List:
Allergies
Allergy/AdvReac Type Severity Reaction Status Date / Time
Latex, Natural Rubber Allergy Unknown Unknown Verified 03/19/24 17:27
bee venom protein (honey bee) Allergy itching Verified 03/19/24 17:27
hives
lisinopril Allergy red hot Verified 03/19/24 17:27
face
tingling
mercaptobenzothiazole Allergy Unknown Verified 03/19/24 17:27
niacin Allergy Unknown Verified 03/19/24 17:27
rubber, unspecified Allergy Unknown Verified 03/19/24 17:27
venom-honey bee Allergy itching Verified 03/19/24 17:27
hives
venom-wasp Allergy itching Verified 03/19/24 17:27
hives
venom-wasp protein Allergy itching Verified 03/19/24 17:27
hives
Home Medications
aspirin 81 mg tablet,delayed release 81 mg PO DAILY Blood clot prevention/tx 11/18/14
rosuvastatin 20 mg tablet 20 mg PO DAILY High cholesterol 11/18/14
amlodipine 10 mg tablet 10 mg PO DAILY Heart disease/condition 11/28/20
calcium carbonate 600 mg PO DAILY Supplement 11/28/20
citalopram 20 mg tablet 20 mg PO DAILY mental health 01/13/21
metoprolol succinate 50 mg tablet,extended release 24 hr (Toprol XL) 50 mg PO DAILY Blood pressure 04/17/22
cetirizine 10 mg tablet (Zyrtec) 10 mg PO HS Allergies 09/08/22
fexofenadine 180 mg tablet 180 mg PO DAILY Allergies 09/08/22
pantoprazole 40 mg tablet,delayed release 40 mg PO DAILY GERD 09/08/22
Klonopin 1 mg PO DAILY PRN anxiety 01/30/24
sennosides 8.6 mg tablet (Senna Laxative) 17.2 mg (2 x 8.6 mg) PO HS #0 tabs 02/02/24
biotin 800 mcg tablet 800 mcg PO DAILY 03/19/24
celecoxib 200 mg capsule 200 mg PO DAILY 03/19/24
cholecalciferol (vit D3) 1,000 unit-vitamin K2 (MK4) 100 mcg tablet 1 tab PO DAILY 03/19/24
finasteride 5 mg tablet 2.5 mg PO DAILY 03/19/24
oxycodone-acetaminophen 5 mg-325 mg tablet 1 tab PO Q8HPRN PRN moderate pain 03/19/24
sennosides 8.6 mg tablet (senna) 8.6 mg PO DAILY 03/19/24
Review of Systems
-
A 12 point ROS was completed and negative except as noted: Yes
Constitutional: Denies Fever
Respiratory: Denies Cough or Trouble Breathing
Cardiac: Denies Chest Pain or Palpitations
Abdomen/GI: Reports See HPI
Physical Exam
Vital Signs
Vital Signs
Temp Pulse Resp BP Pulse Ox
97.5 F 71 18 168/76 90
03/19/24 17:26 03/19/24 19:30 03/19/24 19:30 03/19/24 19:00 03/19/24 19:30
Physical Exam
General: Comfortable and Conversant
HEENT: Anicteric and Moist mucous membranes
Respiratory: Clear and Non Labored Respirations
Cardiac: S1/S2 and Regular Rhythm
GI: Soft, Non Tender and Non Distended
Musculoskeletal: No Clubbing, No Cyanosis and No Edema
Skin: Warm and Dry
Neuro: Awake, Alert, Oriented and Nonfocal/grossly intact
Psych: Calm
Laboratory Results
-
03/19/24 17:40
03/19/24 17:40
Laboratory Results
Lactic Acid 3.1 mmol/L (0.7-2.0) H 03/19/24 18:54
Total Bilirubin 0.6 mg/dl (0.2-1.3) 03/19/24 17:40
AST 33 U/L (14-36) 03/19/24 17:40
ALT 32 U/L (0-35) 03/19/24 17:40
Alkaline Phosphatase 106 U/L (38-126) 03/19/24 17:40
Lipase 204 U/L (23-300) 03/19/24 17:40
Data Reviewed
-
Lab Data: Labs Reviewed by me
Impression/Plan
-
Acute on Chronic Abdominal Pain
-Consult GI
-Allow clear liquids
-Continue Dilaudid for pain control
Leukocytosis/Lactic Acidosis - No clear source of infection
-Hold on antibiotics
-Continue to trend
Essential Hypertension
-Continue amlodipine and metoprolol with hold parameters
Dyslipidemia
-Continue Crestor
Anxiety / Depression
-Continue citalopram
-Continue Klonopin prn
DVT proph: Lovenox
Code Status:Full Code
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
[2024-03-19 22:24] VITALS: BP 156/75; BMI 23.4
[2024-03-19] MEDS: DILAUDID 0.25 MG IV (23:19)
[2024-03-19] MEDS: SENOKOT 17.2 MG PO (23:20)
--- NOTE | 2024-03-19 23:50 | PTCARENOTE ---
Pt. arrived to 3W via stretcher and ambulated to the bed. Pt. was admitted and oriented to unit. Pt assessed by RN, Pt. resting in bed comfortably and no further requests at this time.
[2024-03-20 01:39] LABS: Lactic Acid 2.7 mmol/L (0.7-2.0)
[2024-03-20 06:00] VITALS: BMI 23.6
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
[2024-03-20 06:50] LABS: Blood Urea Nitrogen 16 mg/dl (7-17); Calcium 9.2 mg/dl (8.4-10.2); Carbon Dioxide 25 mmol/L (22-30); Chloride 102 mmol/L (98-107); Estimated Creatinine Clearance 59 ml/min; Glucose 109 mg/dl (70-99); Potassium 3.6 mmol/L (3.5-5.1); Sodium 141 mmol/L (135-145); eGFR > 60.00
[2024-03-20 07:18] LABS: Hematocrit 37.9 % (37.0-47.0); Hemoglobin 13.3 g/dL (12.0-16.0); Mean Corp Hgb Conc. 35.1 g/dL (33.0-37.0); Mean Corpuscular Hgb 29.9 pg (27.0-31.0); Mean Corpuscular Volume 85.2 fL (81.0-99.0); Mean Platelet Volume 11.1 fL (7.4-10.4); Platelet Count 234 10^3/uL (130-400); Red Blood Cell Count 4.45 10^6/uL (4.20-5.40); Red Cell Dist. Width 13.2 % (11.5-14.5); White Blood Cell Count 10.5 10^3/uL (4.8-10.8)
[2024-03-20 07:30] VITALS: BP 152/70
[2024-03-20] MEDS: NORVASC 10 MG PO (07:56)
[2024-03-20] MEDS: ASPIR LOW (ENTERIC COATED) 81 MG PO (07:56)
[2024-03-20] MEDS: TOPROL XL 50 MG PO (07:57)
[2024-03-20] MEDS: PROSCAR 2.5 MG PO (07:57)
[2024-03-20] MEDS: PROTONIX 40 MG PO (07:57)
[2024-03-20] MEDS: SENOKOT 8.6 MG PO (07:57)
[2024-03-20] MEDS: CRESTOR 20 MG PO (07:57)
[2024-03-20] MEDS: CELEXA 20 MG PO (07:57)
[2024-03-20] MEDS: CELEBREX 200 MG PO (07:58)
[2024-03-20] MEDS: DILAUDID 0.25 MG IV ×2 (08:15→11:33)
--- NOTE | 2024-03-20 08:44 | VNURNOTE ---
Chart reviewed. [facility]. Currently in OBS status. Will continue to follow hospital course and DC plans.
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
--- NOTE | 2024-03-20 10:20 | W.PN.HOSP.TC ---
Addendum entered and electronically signed by Chava Katz MD 03/20/24 15:54:
Seen and examined by me independently in collaboration with the biomedical engineering supervisor.
Lab data and imaging data reviewed.
Addendum as below :
Patient admitted with acute on chronic abdominal pain. Abdomen soft with no full tenderness but discomfort noted. Lab data and imaging data and reviewed. GI note reviewed. Suspected constipation related and if no benefit with bowel regimen and
persistent symptom then CT angiogram or MR angiogram to look at mesenteric vasculature for pain.
Original Note:
Today's Communication/Plan
-
Pain management
Advance diet
Assessment / Plan
Assessment / Plan
Assessment: 73-year-old female presents for acute on chronic abdominal pain.
Plan:
#Acute on chronic abdominal pain
Etiology unclear
Patient has a past medical history of recurrent pancreatitis
Lipase on admission within normal
Had leukocytosis on admission, currently normal
CT in ED showed no new intra-abdominal findings
GI following
Patient on clear liquids, GI gave permission to advance diet as tolerated
Start patient on cholesterol-lowering diet
Supportive care with as needed pain meds, antiemetics and IVF
#Back pain
Interventional radiology discussed potential treatment options for her back pain, patient decided she would continue with conservative management
Patient follows Ortho pain clinic Dr. Pierre ([facility] ortho)
Past medical history of 70% compression fracture of T12
Patient reports 8.5 out of 10 back pain
Patient currently receiving Dilaudid and oxycodone as needed for pain
Increased patient's Dilaudid dose
#Constipation
Patient reports bowel movements have been alternating between constipation and diarrhea
Patient reports no bowel movement today
Patient has multiple as needed constipation medications
Patient takes many chronic opioids
#Benign hypertension
Continue metoprolol with holding parameters
#Anxiety depression
Continue home meds
DVT prophylaxis: SCDs
CODE STATUS full code
Diet: Cholesterol-lowering
Anticipated Discharge: 24 - 48 hours
Subjective/Interval History
-
Date of Service: March 20, 2024
Patient reports diarrhea yesterday, no bowel movement today
Patient reports 8 out of 10 abdominal/back pain currently
Objective Data
-
Labs:
Laboratory Results
03/20/24
05:59
WBC 10.5
Hgb 13.3
Hct 37.9
Plt Count 234 D
Sodium 141
Potassium 3.6
Chloride 102
Carbon Dioxide 25
BUN 16
Creatinine 0.6
Glucose 109 H
Calcium 9.2
Vital Signs:
Vital Signs
Temp Pulse Resp BP Pulse Ox
99.4 F 84 18 152/70 98
03/20/24 07:30 03/20/24 07:30 03/20/24 07:30 03/20/24 07:30 03/20/24 07:30
Review of Systems
-
History Source: Patient
Constitutional: Reports No Symptoms
Respiratory: Reports No Symptoms
Cardiac: Reports No Symptoms
Abdomen/GI: Reports Abdominal Pain
Musculoskeletal: Reports Other (Back pain)
Physical Exam
-
General: Well Developed, Well Nourished, Appears in Distress and Conversant
Respiratory: Clear to Auscultation
Cardiac: Regular Rhythm and S1/S2
GI: Soft, Nondistended, Normal Bowel Sounds, Tender and Other (Abdominal pain worse on left)
Musculoskeletal: Other
Skin: Warm and Dry
Neuro: Awake, Alert, Oriented and AO x 3
Psych: Calm and Intact Judgement/Insight
Data Reviewed
-
Labs: Labs Reviewed by me and Discussed with Physician
[2024-03-20] MEDS: AMITIZA 24 MCG PO ×2 (10:25→19:51)
[2024-03-20] MEDS: MIRALAX 17 GRAMS PO (10:25)
[2024-03-20] MEDS: NSS 1000 IV ×2 (11:35→23:12)
[2024-03-20 15:30] VITALS: BP 138/70
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
[2024-03-20] MEDS: LOVENOX 40 MG SC (17:24)
[2024-03-20] MEDS: DILAUDID 0.5 MG IV ×2 (17:26→21:26)
[2024-03-20] MEDS: SENOKOT 17.2 MG PO (21:24)
[2024-03-20 23:07] VITALS: BP 129/63
[2024-03-21 05:03] VITALS: BMI 22.9
--- NOTE | 2024-03-21 06:01 | DOWNTIME ---
There was a [employer] Client Training Officer Downtime on 03/21/2024 from 0100 to 03/21/2024 at 0300. Downtime documentation of patient's care, including medication administrations, has been reconciled in the electronic record per guidelines. Refer to the
patient's paper chart under the miscellaneous tab to see printed paper medication records and downtime forms.
[2024-03-21 06:40] LABS: Hematocrit 41.9 % (37.0-47.0); Mean Corp Hgb Conc. 35.8 g/dL (33.0-37.0); Mean Corpuscular Hgb 30.3 pg (27.0-31.0); Mean Corpuscular Volume 84.6 fL (81.0-99.0); Mean Platelet Volume 10.6 fL (7.4-10.4); Platelet Count 240 10^3/uL (130-400); Red Blood Cell Count 4.95 10^6/uL (4.20-5.40); Red Cell Dist. Width 13.2 % (11.5-14.5); White Blood Cell Count 7.8 10^3/uL (4.8-10.8)
[2024-03-21 06:53] LABS: Lactic Acid 0.8 mmol/L (0.7-2.0)
[2024-03-21 06:55] LABS: Blood Urea Nitrogen 9 mg/dl (7-17); Calcium 9.6 mg/dl (8.4-10.2); Carbon Dioxide 24 mmol/L (22-30); Chloride 102 mmol/L (98-107); Estimated Creatinine Clearance 59 ml/min; Glucose 111 mg/dl (70-99); Potassium 3.3 mmol/L (3.5-5.1); Sodium 139 mmol/L (135-145); eGFR > 60.00
[2024-03-21] MEDS: AMITIZA 24 MCG PO ×2 (07:17→21:37)
[2024-03-21] MEDS: PROSCAR 2.5 MG PO (07:17)
[2024-03-21] MEDS: PROTONIX 40 MG PO (07:17)
[2024-03-21] MEDS: CRESTOR 20 MG PO (07:17)
[2024-03-21] MEDS: TOPROL XL 50 MG PO (07:17)
[2024-03-21] MEDS: CELEXA 20 MG PO (07:18)
[2024-03-21] MEDS: NORVASC 10 MG PO (07:18)
[2024-03-21] MEDS: ASPIR LOW (ENTERIC COATED) 81 MG PO (07:18)
[2024-03-21] MEDS: MIRALAX PO (07:18)
[2024-03-21] MEDS: SENOKOT 8.6 MG PO (07:18)
[2024-03-21] MEDS: CELEBREX 200 MG PO (07:20)
[2024-03-21 07:30] VITALS: BP 153/83
[2024-03-21] MEDS: KCL 40 MEQ PO (08:48)
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
--- NOTE | 2024-03-21 09:23 | W.PN.HOSP.TC ---
Addendum entered and electronically signed by Jair Umanzor DO, Resident 04/02/24 08:20:
# acute hypokalemia
Potassium low on BMP
repleted with 40 mg KCL po
resloved on next bmp check
Addendum entered and electronically signed by Chava Katz MD 03/21/24 17:17:
Seen and examined by me independently in collaboration with the biomedical electronics technician.
Lab data and imaging data reviewed.
Addendum as below :
Patient had 1 loose bowel movement today. She think she will be having another 1. Still with persistent abdominal pain which does not interfere with her oral intake. No nausea vomiting. She still says she is having intermittent sweats while in
the hospital. No headache or chest pains.
Abdomen exam shows tenderness in the epigastric area in the left upper quadrant area today no rebound guarding rigidity.
Lab data noted.
Abdominal pain of unclear etiology. Getting cleaned out with the laxative regimen to see if it makes any difference. None so far. For reasons unclear she had a transient leukocytosis and also transient lactic acidosis and transient BUN elevation.
Able to pain is persistent consider CT angiogram of the abdomen. GI following.
She had a similar abdominal pain issues in the past had a urinary metanephrines which were drawn elevated side. Will repeat that again. CT imaging recently showed no evidence of adrenal adenoma.No HTN issues or GU but has associated sweating with
abdo pain. HIAA in past has been neg.
CW laxative regimen.
Original Note:
Today's Communication/Plan
-
Pain management
Advance diet as tolerated
Assessment / Plan
Assessment / Plan
Assessment: 73-year-old female presents for acute on chronic abdominal pain.
Plan:
#Acute on chronic abdominal pain
Etiology unclear
Patient has a past medical history of recurrent pancreatitis
Lipase on admission within normal
Had leukocytosis on admission, currently normal
CT in ED showed no new intra-abdominal findings
GI following
Patient on clear liquids, GI gave permission to advance diet as tolerated
Patient tolerating cholesterol-lowering diet well
Supportive care with as needed pain meds, antiemetics and IVF
Checking urine metanephrines
#Back pain
Interventional radiology discussed potential treatment options for her back pain, patient decided she would continue with conservative management
Patient follows Ortho pain clinic Dr. Pierre ([facility])
Past medical history of 70% compression fracture of T12
Patient reports 8.5 out of 10 back pain
Patient currently receiving Dilaudid and oxycodone as needed for pain
Increased patient's Dilaudid dose
PT OT evaluation
#Constipation
Patient reports bowel movements have been alternating between constipation and diarrhea
Patient reports watery bowel movement this morning
Patient has multiple as needed constipation medications, GI is on board and adjusting
Patient takes many chronic opioids
GI considering CTA or MRA to evaluate for ischemic process if pain is not improved with bowel movements
#Benign hypertension
Continue metoprolol with holding parameters
#Anxiety depression
Continue home meds
DVT prophylaxis: SCDs
CODE STATUS full code
Diet: Cholesterol-lowering
Anticipated Discharge: 24 - 48 hours
Subjective/Interval History
-
Date of Service: March 21, 2024
Patient reports watery bowel movement this morning
Patient reports pain still uncontrolled, pain is abdominal in origin per patient
Objective Data
-
Labs:
Laboratory Results
03/21/24
06:28
WBC 7.8
Hgb 15.0
Hct 41.9
Plt Count 240
Sodium 139
Potassium 3.3 L
Chloride 102
Carbon Dioxide 24
BUN 9
Creatinine 0.5 L
Glucose 111 H
Calcium 9.6
Vital Signs:
Vital Signs
Temp Pulse Resp BP Pulse Ox
98.5 F 71 22 153/83 97
03/21/24 07:30 03/21/24 07:30 03/21/24 07:30 03/21/24 07:30 03/21/24 07:30
I&O
03/20/24 03/21/24 03/22/24
06:59 06:59 06:59
Intake Total 1630 / 1630
Balance 1630 / 1630
Review of Systems
-
History Source: Patient
Constitutional: Reports No Symptoms
Respiratory: Reports No Symptoms
Cardiac: Reports No Symptoms
Abdomen/GI: Reports Abdominal Pain (Middle and left side abdominal pain, radiating to back on left); Denies Nausea, Vomiting or Diarrhea
Physical Exam
-
General: Well Developed, Well Nourished, No Apparent Distress, Comfortable and Conversant
Respiratory: Clear to Auscultation
Cardiac: Regular Rhythm and S1/S2
GI: Soft, Nondistended, Normal Bowel Sounds and Tender
Musculoskeletal: No Edema
Skin: Warm and Dry
Neuro: Awake, Alert, Oriented and AO x 3
Psych: Calm and Intact Judgement/Insight
Data Reviewed
-
Labs: Labs Reviewed by me and Discussed with Physician
[2024-03-21] MEDS: DILAUDID 0.5 MG IV ×3 (09:25→19:21)
[2024-03-21 10:40] VITALS: BP 151/81; PULSE 67; O2SAT 96
[2024-03-21 10:45] VITALS: BP 151/81; PULSE 68; O2SAT 96
--- NOTE | 2024-03-21 11:57 | PTOTSP ---
pt currently demonstrates ability to complete simple ADLs, functional transfers, ambulation with supervision assistance. pt has assistance with IADLs since previous hospitalization. no acute OT needs identified at this time, will sign off.
[2024-03-21 15:30] VITALS: BP 138/71
[2024-03-21] MEDS: LOVENOX 40 MG SC (17:07)
[2024-03-21] MEDS: SENOKOT 17.2 MG PO (21:37)
[2024-03-21 23:20] VITALS: BP 137/67
[2024-03-22] MEDS: KLONOPIN 1 MG PO (00:17)
--- NOTE | 2024-03-22 04:17 | PTCARENOTE ---
resumed care. aaox3. vss. abd tender to touch. call hernandez in reach. will monitor.
[2024-03-22 06:00] VITALS: BMI 22.9
[2024-03-22 07:00] VITALS: BP 132/59
[2024-03-22 07:23] LABS: Hematocrit 40.3 % (37.0-47.0); Hemoglobin 14.4 g/dL (12.0-16.0); Mean Corp Hgb Conc. 35.7 g/dL (33.0-37.0); Mean Corpuscular Hgb 30.1 pg (27.0-31.0); Mean Corpuscular Volume 84.3 fL (81.0-99.0); Mean Platelet Volume 10.5 fL (7.4-10.4); Platelet Count 245 10^3/uL (130-400); Red Blood Cell Count 4.78 10^6/uL (4.20-5.40)
[2024-03-22 07:49] LABS: Blood Urea Nitrogen 14 mg/dl (7-17); Calcium 9.9 mg/dl (8.4-10.2); Carbon Dioxide 25 mmol/L (22-30); Chloride 101 mmol/L (98-107); Estimated Creatinine Clearance 51 ml/min; Glucose 100 mg/dl (70-99); Potassium 3.9 mmol/L (3.5-5.1); Sodium 140 mmol/L (135-145); eGFR > 60.00
[2024-03-22] MEDS: SENOKOT 8.6 MG PO (07:50)
[2024-03-22] MEDS: PROTONIX 40 MG PO (07:50)
[2024-03-22] MEDS: PROSCAR 2.5 MG PO (07:50)
[2024-03-22] MEDS: MIRALAX PO (07:51)
[2024-03-22] MEDS: AMITIZA 24 MCG PO ×2 (07:51→19:36)
[2024-03-22] MEDS: CRESTOR 20 MG PO (07:51)
[2024-03-22] MEDS: ASPIR LOW (ENTERIC COATED) 81 MG PO (07:51)
[2024-03-22] MEDS: CELEBREX 200 MG PO (07:52)
[2024-03-22] MEDS: CELEXA 20 MG PO (07:53)
[2024-03-22] MEDS: TOPROL XL 50 MG PO (07:53)
[2024-03-22] MEDS: NORVASC 10 MG PO (07:53)
--- NOTE | 2024-03-22 08:49 | PN.CDI ---
CDI
- -
CDI:
Physician Documentation Request
Admit Date: 03/21/24 09:44
Dear Doctor Erna,
Patient admitted for abdominal pain.
03/21 Potassium level: 3.3
03/21 Potassium chloride 40 meq PO administered
Based on the above, could you clarify in the progress notes, the appropriate diagnosis, if significant, that supports the above abnormalities and additional evaluation, monitoring and/or treatment rendered:
Hypokalemia
Abnormal lab value insignificant
Other
Use of terms such as suspected, likely, concern for, or probable (associated with a specific diagnosis that is being evaluated, monitored, or treated as if it exists) are acceptable and can be coded in the inpatient setting, when documented at the
time of discharge.
Thank you,
Nieves Azul RN, BSN
CDI Specialist
Available via [place] text
Please use your independent medical judgment in providing your response.
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
--- NOTE | 2024-03-22 13:31 | CM ---
Reviewed chart, patent functioning at baseline level despite some pain. Able to complete ADLs. Wants to return home at d/c.
Plan: Case management will continue to follow and assist with discharge planning. Home when medically cleared.
[2024-03-22] MEDS: DILAUDID 0.5 MG IV ×2 (13:42→21:56)
--- NOTE | 2024-03-22 15:22 | W.PN.HOSP.TC ---
Today's Communication/Plan
-
CT angiogram of abdomen pelvis
Assessment / Plan
Assessment / Plan
Assessment: 73-year-old female presents for acute on chronic abdominal pain.
Plan:
#Acute on chronic abdominal pain
Etiology unclear
Patient has a past medical history of recurrent pancreatitis
CT in ED showed no new intra-abdominal findings
On admission there is an acute elevation of leukocytosis along with elevated BUN and lactic acidosis which was unexplainable.
Symptoms were thought may be constipation related. She had loose bowel movements twice today but no significant improvement she thinks in the abdominal pain.
Would do CT Angio A/P to eval further for vascular dz.
In past Urinary metanephrines are on the higher side which I would repeat again-doubt that this is a pheochromocytoma especially with no fluctuating blood pressure or headache. Also with prior CT imaging of the abdomen showed adrenals to be
normal. They could be extra medullary pheochromocytomas which are rarer than medullary.
She has intermittent sweating and loose stools and in past had Urinary 5HIAA testing and it was neg.
#Back pain
Interventional radiology discussed potential treatment options for her back pain, patient decided she would continue with conservative management
Patient follows Ortho pain clinic Dr. Pierre ([facility])
Past medical history of 70% compression fracture of T12
Patient currently receiving Dilaudid and oxycodone as needed for pain
CW PT tx
#Constipation
CW current bowel regimen
#Benign hypertension
Continue metoprolol with holding parameters
#Anxiety depression
Continue home meds
DVT prophylaxis: SCDs
CODE STATUS full code
Diet: Cholesterol-lowering
Anticipated Discharge: Within 24 hours
Subjective/Interval History
-
Date of Service: March 22, 2024
She still with abdominal pain. She was better this morning ; she had 2 bowel movements and she started to have crampy abdominal pain again needing pain meds. She rates it as 6 out of 10. His abdominal pain seems to be different from the pain
which comes from the back to the lower left lower quadrant of the abdomen. She has a T12 fracture which she has been nursing for the last few days.
No nausea or vomiting .
Tolerating diet though.
No fever or chills.
Objective Data
-
Labs:
Laboratory Results
03/22/24
06:56
WBC 8.0
Hgb 14.4
Hct 40.3
Plt Count 245
Sodium 140
Potassium 3.9
Chloride 101
Carbon Dioxide 25
BUN 14
Creatinine 0.7
Glucose 100 H
Calcium 9.9
Vital Signs:
Vital Signs
Temp Pulse Resp BP Pulse Ox
98.5 F 62 16 132/59 97
03/22/24 07:00 03/22/24 07:00 03/22/24 07:00 03/22/24 07:00 03/22/24 07:00
I&O
03/21/24 03/22/24 03/23/24
06:59 06:59 06:59
Intake Total 1630 / 1630 1000 / 1000
Balance 1630 / 1630 1000 / 1000
Review of Systems
-
Constitutional: Denies Fever
Respiratory: Denies Trouble Breathing
Cardiac: Denies Chest Pain or Palpitations
Abdomen/GI: Reports Abdominal Pain; Denies Nausea or Vomiting
Neuro: Denies Dizzy
Physical Exam
-
General: No Apparent Distress
HEENT: Moist Mucous Membranes
Respiratory: Clear to Auscultation
Cardiac: Regular Rhythm and S1/S2
GI: Soft, Nondistended, Normal Bowel Sounds and Tender (Epigastric and LUQ area ; there seems to be some LLQ hyperanalgesia radiating along left t12 dermatome)
Neuro: AO x 3
Psych: Calm
[2024-03-22 16:00] VITALS: BP 135/73
[2024-03-22] MEDS: LOVENOX 40 MG SC (17:00)
[2024-03-22] MEDS: SENOKOT 17.2 MG PO (21:56)
[2024-03-22 23:23] VITALS: BP 113/63
[2024-03-23] MEDS: DILAUDID 0.5 MG IV ×3 (03:39→19:42)
[2024-03-23 06:00] VITALS: BMI 23.1
--- NOTE | 2024-03-23 06:54 | W.PN.GI.CBS2 ---
Today's Communication / Plan
-
Please see assessment and plan for details.
Assessment / Plan
-
1. Abdominal pain: With extensive workup over the years which has been essentially unremarkable, with recurrent idiopathic pancreatitis in the past, with symptoms more consistent with relative constipation and bowel spasm, now with recurrent pain
after narcotics for compression fracture. We discussed that is reassuring that her CT angiogram does not show any significant stenosis or other inflammation. At this point we discussed trial of antispasmodics. She is interested in advancing her
diet as she was feeling overall better and will advance her diet for now. If she does well then could DC on Levsin as needed, continuing bowel regimen.
Subjective
Subjective
Date of Service: March 23, 2024
Patient was feeling better yesterday, but started having a bit more discomfort, had repeat CT scan which showed some calcifications though no significant stenosis, also did not show any significant formation, mass, abscess etc. She did take 1 dose
of Dilaudid overnight.
Objective
Data Reviewed
Laboratory Data:
Laboratory Results
03/22/24 06:56
03/22/24 06:56
Laboratory Results
Total Bilirubin 0.6 mg/dl (0.2-1.3) 03/19/24 17:40
AST 33 U/L (14-36) 03/19/24 17:40
ALT 32 U/L (0-35) 03/19/24 17:40
Alkaline Phosphatase 106 U/L (38-126) 03/19/24 17:40
Lipase 204 U/L (23-300) 03/19/24 17:40
Vital Signs and I&O:
Vital Signs
Temp Pulse Resp BP Pulse Ox
98.3 F 63 16 113/63 96
03/22/24 23:23 03/22/24 23:23 03/22/24 23:23 03/22/24 23:23 03/22/24 23:23
I&O
03/21/24 03/22/24 03/23/24
06:59 06:59 06:59
Intake Total 1630 / 1630 1000 / 1000 620 / 620
Balance 1630 / 1630 1000 / 1000 620 / 620
Physical Exam
Physical Exam
General: NAD
Abdomen: normal bowel sounds, soft, no tenderness, no masses or bruits, no ascites
[2024-03-23 07:00] VITALS: BP 122/68
[2024-03-23] MEDS: NORVASC 10 MG PO (07:42)
[2024-03-23] MEDS: CRESTOR 20 MG PO (07:42)
[2024-03-23] MEDS: CELEBREX 200 MG PO (07:42)
[2024-03-23] MEDS: ASPIR LOW (ENTERIC COATED) 81 MG PO (07:42)
[2024-03-23] MEDS: PROSCAR 2.5 MG PO (07:42)
[2024-03-23] MEDS: AMITIZA 24 MCG PO ×2 (07:42→19:41)
[2024-03-23] MEDS: PROTONIX 40 MG PO (07:42)
[2024-03-23] MEDS: SENOKOT 8.6 MG PO (07:43)
[2024-03-23] MEDS: CELEXA 20 MG PO (07:43)
[2024-03-23] MEDS: TOPROL XL PO (07:45)
[2024-03-23] MEDS: MIRALAX PO (07:48)
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
[2024-03-23] MEDS: BENTYL 10 MG PO (12:17)
--- NOTE | 2024-03-23 14:18 | PTOTSP ---
PATIENT ABLE TO TOLERATE INCREASED MOBILITY, INCLUDING ELEVATIONS AND WAS ABLE TO AMBULATE WITHOUT A DEVICE/INDEPENDENTLY. WILL DISCHARGE FROM P.T. SERVICES.
[2024-03-23 15:00] VITALS: BP 137/70
[2024-03-23] MEDS: LOVENOX 40 MG SC (17:26)
[2024-03-23 19:00] VITALS: BP 120/70
[2024-03-23] MEDS: SENOKOT 17.2 MG PO (19:42)
[2024-03-23 23:25] VITALS: BP 110/69
[2024-03-24] MEDS: KLONOPIN 1 MG PO (04:33)
[2024-03-24] MEDS: BENTYL 10 MG PO (04:39)
[2024-03-24 06:00] VITALS: BMI 23.0
[2024-03-24 07:00] VITALS: BP 130/55
[2024-03-24 07:25] LABS: ALT (SGPT) 21 U/L (0-35); AST (SGOT) 18 U/L (14-36); Albumin 4.2 g/dl (3.5-5.0); Alkaline Phosphatase 75 U/L (38-126); Blood Urea Nitrogen 21 mg/dl (7-17); Calcium 10.3 mg/dl (8.4-10.2); Carbon Dioxide 24 mmol/L (22-30); Chloride 102 mmol/L (98-107); Estimated Creatinine Clearance 51 ml/min; Glucose 104 mg/dl (70-99); Hematocrit 41.7 % (37.0-47.0); Magnesium 1.7 mg/dl (1.6-2.3); Mean Corpuscular Volume 86.2 fL (81.0-99.0); Mean Platelet Volume 10.7 fL (7.4-10.4); Platelet Count 229 10^3/uL (130-400); Red Blood Cell Count 4.84 10^6/uL (4.20-5.40); Red Cell Dist. Width 12.8 % (11.5-14.5); Sodium 139 mmol/L (135-145); Total Bilirubin 0.6 mg/dl (0.2-1.3); Total Protein 6.5 g/dl (6.3-8.2); White Blood Cell Count 6.9 10^3/uL (4.8-10.8); eGFR > 60.00
[2024-03-24] MEDS: CELEBREX 200 MG PO (07:39)
[2024-03-24] MEDS: CRESTOR 20 MG PO (07:39)
[2024-03-24] MEDS: AMITIZA 24 MCG PO (07:39)
[2024-03-24] MEDS: NORVASC 10 MG PO (07:40)
[2024-03-24] MEDS: SENOKOT 8.6 MG PO (07:40)
[2024-03-24] MEDS: ASPIR LOW (ENTERIC COATED) 81 MG PO (07:40)
[2024-03-24] MEDS: CELEXA 20 MG PO (07:40)
[2024-03-24] MEDS: PROSCAR 2.5 MG PO (07:40)
[2024-03-24] MEDS: MIRALAX 17 GRAMS PO (07:40)
[2024-03-24] MEDS: TOPROL XL 50 MG PO (07:40)
[2024-03-24] MEDS: PROTONIX 40 MG PO (07:40)
--- NOTE | 2024-03-24 09:09 | W.PN.GI.CBS2 ---
Today's Communication / Plan
-
Please see assessment and plan for details.
Assessment / Plan
-
1. Abdominal pain: With extensive workup over the years which has been essentially unremarkable, with recurrent idiopathic pancreatitis in the past, with symptoms more consistent with relative constipation and bowel spasm, now with recurrent pain
after narcotics for compression fracture. We discussed that is reassuring that her CT angiogram does not show any significant stenosis or other inflammation. Overall she is doing well with benign exam now. She is okay to DC from GI standpoint
with Amitiza and Bentyl. She will follow-up with Dr. Lay in the office. Will sign off for now, please call back with any further questions.
Subjective
Subjective
Date of Service: March 24, 2024
Patient feeling better overall, no severe abdominal pain, feels that Bentyl has helped, no bowel movements overnight, vomiting or diarrhea. Tolerate diet without difficulty.
Objective
Data Reviewed
Laboratory Data:
Laboratory Results
03/24/24 06:20
03/24/24 06:20
Laboratory Results
Magnesium 1.7 mg/dl (1.6-2.3) 03/24/24 06:20
Total Bilirubin 0.6 mg/dl (0.2-1.3) 03/24/24 06:20
AST 18 U/L (14-36) 03/24/24 06:20
ALT 21 U/L (0-35) 03/24/24 06:20
Alkaline Phosphatase 75 U/L (38-126) 03/24/24 06:20
Lipase 204 U/L (23-300) 03/19/24 17:40
Vital Signs and I&O:
Vital Signs
Temp Pulse Resp BP Pulse Ox
98.4 F 68 17 130/55 95
03/24/24 07:00 03/24/24 07:00 03/24/24 07:00 03/24/24 07:00 03/24/24 07:00
I&O
03/23/24 03/24/24 03/25/24
06:59 06:59 06:59
Intake Total 620 / 620 780 / 780
Balance 620 / 620 780 / 780
Physical Exam
Physical Exam
General: NAD
Abdomen: normal bowel sounds, soft, no tenderness, no masses or bruits, no ascites
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
[2024-03-24] MEDS: PERCOCET 5/325 1 TABLET PO (11:03)
--- NOTE | 2024-03-24 11:30 | CM ---
Addendum entered by Pat Cisneros 03/24/24 16:14:
patient is now dc home with [facility] through [facility].
Original Note:
patient is stable for dc home with no needs.imm letter signed.family to transport home.Plan home with no needs.
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
[2024-03-24 14:00] VITALS: BP 128/68
[2024-03-29 19:54] LABS: 24 Hour Urine Total Volume Random mL; Creatinine, Urine per Volume 80 mg/dL; Metanephrine, Urine 123 ug/L; Metanephrine/Creatinine Ratio 154 ug/g CRT (0-300); Normetanephrine, Urine 566 ug/L; Normetanephrine/Creatinine Rat 708 ug/g CRT (0-400); Urine Collection Length Random hr
== END 2024-03-24 14:32 | disposition home health service (06) | DRG 392 ==
LOC: 3 WEST ACU 09:44
PROVIDERS: Physician Assistant; Physician Assistant Medical; ADMITTING PHYSICIAN Internal Medicine; ATTENDING PHYSICIAN Internal Medicine; EMERGENCY PHYSICIAN Emergency Medicine; FAMILY PHYSICIAN Internal Medicine; OTHER PHYSICIAN Student in an Organized Health Care Education/Training Program
DX: R10.9 Unspecified abdominal pain (principal); K86.1 Other chronic pancreatitis; Z87.891 Personal history of nicotine dependence; R63.4 Abnormal weight loss; K59.00 Constipation, unspecified; I10 Essential (primary) hypertension; F41.8 Other specified anxiety disorders; E87.6 Hypokalemia
CPT/HCPCS: 74174; 74177; 80048; 80053; 81003; 83605; 83690; 83735; 83835; 85025; 85027; 93005; 96361; 96374; 96375; 96376; 97116; 97162; 97165; 97530; 99285; Q9967

== ENCOUNTER 2024-03-29 10:12 | Inpatient (IN) | payer MEDICARE, OTHER, SELFPAY ==
[2024-03-29] VITALS (22 sets, daily range): BP systolic 100–188; BP diastolic 53–138; PULSE 76–78; BMI 23.7
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
[2024-03-29 01:59] LABS: % Basophils 0.3 % (0-2); % Eosinophils 0.7 % (0-6); % Immature Granulocytes 0.4 % (0-0.5); % Lymphocytes 13.8 % (20.5-51.1); % Monocytes 2.7 % (1.7-9.3); % Neutrophils 82.1 % (42.2-75.2); Absolute Basophils 0.1 10^3/uL (0-0.2); Absolute Eosinophils 0.1 10^3/uL (0-0.7); Absolute Immature Granulocytes 0.1 10^3/uL (0-0.05); Absolute Monocytes 0.4 10^3/uL (0.1-0.6); Hematocrit 39.5 % (37.0-47.0); Hemoglobin 14.6 g/dL (12.0-16.0); Mean Corpuscular Hgb 30.4 pg (27.0-31.0); Mean Corpuscular Volume 82.3 fL (81.0-99.0); Mean Platelet Volume 10.7 fL (7.4-10.4); Nucleated Red Blood Cells % 0 %; Platelet Count 295 10^3/uL (130-400); Red Cell Dist. Width 12.9 % (11.5-14.5); White Blood Cell Count 14.6 10^3/uL (4.8-10.8)
[2024-03-29 02:21] LABS: ALT (SGPT) 29 U/L (0-35); AST (SGOT) 39 U/L (14-36); Albumin 5.1 g/dl (3.5-5.0); Alkaline Phosphatase 97 U/L (38-126); Blood Urea Nitrogen 26 mg/dl (7-17); Calcium 10.5 mg/dl (8.4-10.2); Carbon Dioxide 19 mmol/L (22-30); Chloride 99 mmol/L (98-107); Estimated Creatinine Clearance 39 ml/min; Glucose 201 mg/dl (70-99); Lipase 147 U/L (23-300); Potassium 3.4 mmol/L (3.5-5.1); Sodium 138 mmol/L (135-145); Total Bilirubin 0.6 mg/dl (0.2-1.3); Total Protein 7.5 g/dl (6.3-8.2); eGFR > 60.00
[2024-03-29] MEDS: BENTYL 20 MG IM ×2 (02:29→06:25)
[2024-03-29] MEDS: DILAUDID 0.25 MG IV (02:30)
[2024-03-29] MEDS: NSS 1000 IV ×5 (02:30→19:09)
[2024-03-29 03:06] LABS: Lactic Acid 4.9 mmol/L (0.7-2.0)
[2024-03-29 05:40] LABS: Urine Albumin Negative (Neg - Trace); Urine Bilirubin Negative (Negative); Urine Character Clear (Clear); Urine Color Yellow; Urine Glucose Trace (Negative); Urine Ketone Negative (Negative); Urine Leukocyte Negative (Negative); Urine Nitrite Negative (Negative); Urine Occult Blood Trace (Negative); Urine Urobilinogen Negative (Neg - 1+)
[2024-03-29 05:48] LABS: Urine Bacteria Few (Negative); Urine White Cell 0-2 /HPF (0-5)
[2024-03-29 06:17] LABS: Lactic Acid 6.6 mmol/L (0.7-2.0)
[2024-03-29] MEDS: DILAUDID 0.5 MG IV ×3 (06:17→16:55)
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
--- NOTE | 2024-03-29 12:10 | PTCARENOTE ---
Pt to 3347 AAOx3, IV fluids running Pt refusing CT scan. DR Delgadillo here spoke with pt re plan of care and pt agreeable to his plan. CT scan aware of plan. Blood being drawn now.
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
[2024-03-29 12:35] LABS: % Basophils 0.1 % (0-2); % Immature Granulocytes 0.3 % (0-0.5); % Lymphocytes 7.6 % (20.5-51.1); % Monocytes 2.4 % (1.7-9.3); % Neutrophils 89.6 % (42.2-75.2); Absolute Lymphocytes 0.8 10^3/uL (1.2-3.4); Absolute Monocytes 0.2 10^3/uL (0.1-0.6); Absolute Neutrophils 9.2 10^3/uL (1.4-6.5); Hematocrit 38.4 % (37.0-47.0); Hemoglobin 13.6 g/dL (12.0-16.0); Mean Corp Hgb Conc. 35.4 g/dL (33.0-37.0); Mean Corpuscular Hgb 29.9 pg (27.0-31.0); Mean Corpuscular Volume 84.4 fL (81.0-99.0); Nucleated Red Blood Cells % 0 %; Platelet Count 288 10^3/uL (130-400); Red Blood Cell Count 4.55 10^6/uL (4.20-5.40); White Blood Cell Count 10.2 10^3/uL (4.8-10.8)
[2024-03-29 12:43] LABS: Blood Urea Nitrogen 14 mg/dl (7-17); Carbon Dioxide 19 mmol/L (22-30); Chloride 101 mmol/L (98-107); Estimated Creatinine Clearance 59 ml/min; Glucose 120 mg/dl (70-99); Potassium 3.1 mmol/L (3.5-5.1); Sodium 140 mmol/L (135-145); eGFR > 60.00
[2024-03-29 13:07] LABS: Lactic Acid 4.6 mmol/L (0.7-2.0)
--- NOTE | 2024-03-29 13:13 | CM ---
Addendum entered by Kate Nicholas 03/29/24 13:43:
patient curent with [facility], liaison aware of admission
Original Note:
Patient seen at bedside in the ED. Patient stated that nothing has changed since her last several hospitalizations. Per chart review patient resides alone in a 2 story home with one step to enter. The patient has a first floor master suite. The
patient currently has a walker, cane, shower chair and comode chair at home. Patient has been followed by [facility] and reports being current with them. Patient was at [facility] in the past. Patient uses the [facility] and her PCP is
[place]. Patient plan is for return to home with her family and adolfoice providing assistance for care. CM will continue to follow for discharge planning needs.
Plan; home with [facility] pending medical treatment assessment
[2024-03-29] MEDS: CELEXA 20 MG PO (13:17)
[2024-03-29] MEDS: ASPIR LOW (ENTERIC COATED) 81 MG PO (13:17)
[2024-03-29] MEDS: AMITIZA 24 MCG PO ×2 (13:17→20:23)
[2024-03-29] MEDS: MIRALAX 17 GRAMS PO (13:17)
[2024-03-29] MEDS: CLARITIN 10 MG PO (13:17)
[2024-03-29] MEDS: TOPROL XL 50 MG PO (13:18)
[2024-03-29] MEDS: PROTONIX 40 MG PO (13:18)
[2024-03-29] MEDS: PROSCAR 2.5 MG PO (13:18)
[2024-03-29] MEDS: NORVASC 10 MG PO (13:19)
[2024-03-29] MEDS: ZOSYN IV (14:19)
--- NOTE | 2024-03-29 14:20 | PTCARENOTE ---
Pt took meds refused ABT for now DR Delgadillo TT
--- NOTE | 2024-03-29 14:31 | PTCARENOTE ---
Dr Fernandez tt that pt refused ABT
[2024-03-29] MEDS: SENOKOT 8.6 MG PO (14:40)
[2024-03-29] MEDS: ZOSYN 50 IV ×2 (14:40→18:31)
--- NOTE | 2024-03-29 14:54 | W.PN.UPDATE ---
Update Note
Progress Note Update
metabolic acidosis improving as well as LA. follow up WBC normal, with neutrophil shift but no bandemia
pt preference to hold on CT imaging
okay but would have very low threshold for CT a/p with oral and IV contrast if any clinical deterioration or any further failure to improve
--- NOTE | 2024-03-29 15:11 | VNURNOTE ---
Chart reviewed. Patient is current with [facility]. After last hospitalization, patient refused our visits twice in attempts to resume services. She then came back to . Called patient. Inquired if she is still interested in resuming services. She
confirms she is and that she is mostly interested in home PT and OT. She is agreeable to one or two nursing visits. Patient has [facility] contact info. Resumption referral placed in [facility]. Noted request for PT/OT focus.
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
[2024-03-29] MEDS: KCL 270 MEQ IV (15:45)
--- NOTE | 2024-03-29 17:04 | PTCARENOTE ---
Pt went to [facility] came back to bed face flushed diaphoresis feels awful 7/10 pain in abd Diladuid given temp 99.4
--- NOTE | 2024-03-29 17:15 | PTCARENOTE ---
ACCU check 124 . Pt agreeable to obstruction series
[2024-03-29 17:21] LABS: Glucose - Point of Care 124 mg/dl (70-99)
--- NOTE | 2024-03-29 17:32 | PTCARENOTE ---
Pt To xray for obstruction series
[2024-03-29] MEDS: LOVENOX 40 MG SC (18:24)
[2024-03-29] MEDS: BENTYL 10 MG PO (20:23)
[2024-03-29] MEDS: OMNIPAQUE 50 ML PO (20:26)
[2024-03-29 20:40] LABS: Lactic Acid 3.3 mmol/L (0.7-2.0)
--- NOTE | 2024-03-29 21:09 | PTCARENOTE ---
Pt received from previous RN. there is a order in for abdominal CT. Pt given ordered oral contrast. currently drinking second glass. tolerating, denies current nausea. Pt NSR on monitor. Pt using purwick, due to feeling sick after ambulating earlier
in the day. Call light in reach, care is ongoing.
[2024-03-29] MEDS: SENOKOT PO (22:49)
[2024-03-29] MEDS: ZYRTEC 10 MG PO (22:49)
[2024-03-29] MEDS: SENOKOT 17.2 MG PO (22:58)
[2024-03-30] VITALS (16 sets, daily range): BP systolic 88–168; BP diastolic 49–94
[2024-03-30] MEDS: ZOSYN 50 IV ×4 (01:32→17:35)
[2024-03-30 03:41] LABS: % Basophils 0.1 % (0-2); % Eosinophils 0.7 % (0-6); % Immature Granulocytes 0.4 % (0-0.5); % Lymphocytes 25.3 % (20.5-51.1); % Monocytes 8.3 % (1.7-9.3); % Neutrophils 65.2 % (42.2-75.2); Absolute Eosinophils 0.1 10^3/uL (0-0.7); Absolute Lymphocytes 2.7 10^3/uL (1.2-3.4); Absolute Monocytes 0.9 10^3/uL (0.1-0.6); Hematocrit 37.6 % (37.0-47.0); Hemoglobin 13.6 g/dL (12.0-16.0); Mean Corp Hgb Conc. 36.2 g/dL (33.0-37.0); Mean Corpuscular Hgb 31.5 pg (27.0-31.0); Mean Platelet Volume 10.7 fL (7.4-10.4); Nucleated Red Blood Cells % 0 %; Platelet Count 234 10^3/uL (130-400); Red Blood Cell Count 4.32 10^6/uL (4.20-5.40); Red Cell Dist. Width 13.2 % (11.5-14.5); White Blood Cell Count 10.8 10^3/uL (4.8-10.8)
[2024-03-30 04:01] LABS: Lactic Acid 1.4 mmol/L (0.7-2.0)
[2024-03-30 04:12] LABS: ALT (SGPT) 23 U/L (0-35); AST (SGOT) 35 U/L (14-36); Albumin 4.4 g/dl (3.5-5.0); Alkaline Phosphatase 65 U/L (38-126); Blood Urea Nitrogen 9 mg/dl (7-17); Carbon Dioxide 21 mmol/L (22-30); Chloride 104 mmol/L (98-107); Estimated Creatinine Clearance 59 ml/min; Glucose 114 mg/dl (70-99); Magnesium 1.7 mg/dl (1.6-2.3); Potassium 3.3 mmol/L (3.5-5.1); Sodium 139 mmol/L (135-145); Total Bilirubin 0.8 mg/dl (0.2-1.3); Total Protein 6.7 g/dl (6.3-8.2); eGFR > 60.00
[2024-03-30] MEDS: KCL 40 MEQ PO ×2 (05:20→11:07)
[2024-03-30] MEDS: COMPAZINE 5 MG IV (06:19)
[2024-03-30] MEDS: NSS 1000 IV (07:32)
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
--- NOTE | 2024-03-30 07:41 | PTCARENOTE ---
Addendum entered by Stefanie Darby RN 03/30/24 07:48:
'pancreatic attack' per Pt.
Original Note:
Pt having 'Pancreatic attack'. Hot, flushed, nausea. Pt give ordered dose of Compazine. Pt states this helped. Pt then having large loose BM.
[2024-03-30] MEDS: DILAUDID 0.5 MG IV (08:15)
[2024-03-30] MEDS: CELEXA 20 MG PO (08:18)
[2024-03-30] MEDS: NORVASC 10 MG PO (08:18)
[2024-03-30] MEDS: AMITIZA 24 MCG PO ×2 (08:18→20:10)
[2024-03-30] MEDS: ASPIR LOW (ENTERIC COATED) 81 MG PO (08:18)
[2024-03-30] MEDS: PROTONIX 40 MG PO (08:18)
[2024-03-30] MEDS: CLARITIN 10 MG PO (08:18)
[2024-03-30] MEDS: TOPROL XL 50 MG PO (08:18)
[2024-03-30] MEDS: BENTYL 10 MG PO ×2 (08:19→20:10)
[2024-03-30] MEDS: OSCAL CAL 500 500 MG PO (08:19)
[2024-03-30] MEDS: PROSCAR 2.5 MG PO (08:19)
[2024-03-30] MEDS: SENOKOT 8.6 MG PO (08:20)
[2024-03-30] MEDS: MIRALAX PO (08:38)
--- NOTE | 2024-03-30 09:25 | CM ---
Patient seen at bedside in IMU. Patient stated she has had so many CT scans and is really not feeling well. CM will continue to follow for discharge planning needs.
Plan; home with VN; per patient, pending functional assessments
[2024-03-30 09:45] LABS: Blood Urea Nitrogen 8 mg/dl (7-17); Calcium 9.7 mg/dl (8.4-10.2); Carbon Dioxide 16 mmol/L (22-30); Chloride 100 mmol/L (98-107); Estimated Creatinine Clearance 59 ml/min; Glucose 160 mg/dl (70-99); Potassium 2.7 mmol/L (3.5-5.1); Sodium 140 mmol/L (135-145); eGFR > 60.00
[2024-03-30] MEDS: TYLENOL 1000 MG PO ×2 (12:24→17:34)
[2024-03-30] MEDS: KLONOPIN 0.5 MG PO (12:24)
--- NOTE | 2024-03-30 13:05 | PTCARENOTE ---
Pt presents as assessed. Aox3, anxious at times. NSR on tele monitor. Critical lab result received for potassium level, Dr. Oliver notified via TT. PO potassium administered as ordered. Medicated for abdominal pain as needed, see MAR. Pt having
bowel movements on BSC, but reports it does not improve her pain. IVF infusing as ordered. Able to make needs known, call hernandez within reach.
--- NOTE | 2024-03-30 14:05 | W.PN.GS2 ---
Today's Communication / Plan
-
gs s/o
Assessment / Plan
-
73F with abd pain of unknown etiology
AFVSS
leukocytosis and lactic acidosis resolved
non-toxic appearing
CT A/P yesterday without acute abnormality
No plans for surgical intervention at this time
Pls call with ?s
Subjective Data
-
Date of Service: March 30, 2024
AFVSS, laughing and chatting comfortably with me this am, c/o 'rough night' with abd pain that is typical for the past 8 years
Objective Data
-
Intake and Output
03/29/24 03/30/24 03/31/24
06:59 06:59 06:59
Intake Total 900 / 900
Output Total 900 / 900
Balance 0 / 0
Intake:
IV fluids (Total) 800 / 800
IV piggybacks 100 / 100
Output:
Urine, Voided 900 / 900
Vital Signs
Temp Pulse Resp BP Pulse Ox
99.1 F 84 25 161/94 99
03/30/24 11:11 03/30/24 07:30 03/30/24 07:30 03/30/24 06:33 03/30/24 11:26
Lab Results
03/30/24 03:30
03/30/24 09:02
Calcium 9.7 mg/dl (8.4-10.2) 03/30/24 09:02
Magnesium 1.7 mg/dl (1.6-2.3) 03/30/24 03:30
Total Bilirubin 0.8 mg/dl (0.2-1.3) 03/30/24 03:30
AST 35 U/L (14-36) 03/30/24 03:30
ALT 23 U/L (0-35) 03/30/24 03:30
Alkaline Phosphatase 65 U/L (38-126) 03/30/24 03:30
Total Protein 6.7 g/dl (6.3-8.2) 03/30/24 03:30
Albumin 4.4 g/dl (3.5-5.0) 03/30/24 03:30
Physical Exam
-
Gen: NAD
Abd: soft, mild ttp to right adwoa-abd
[2024-03-30] MEDS: NSS IV (16:06)
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
[2024-03-30] MEDS: LOVENOX 40 MG SC (17:35)
--- NOTE | 2024-03-30 18:07 | PTCARENOTE ---
No further lab orders received for this shift after repletion of Potassium- MD aware. Order received for pt to downgrade to med surg. D/W with Dr. Oliver, pt is appropriate for med surg and labs to be rechecked in the morning.
[2024-03-30] MEDS: SENOKOT 17.2 MG PO (21:56)
[2024-03-30] MEDS: ZYRTEC 10 MG PO (21:56)
[2024-03-31] VITALS (7 sets, daily range): BP systolic 132–144; BP diastolic 67–79
[2024-03-31] MEDS: ZOSYN 50 IV ×3 (01:08→12:44)
[2024-03-31] MEDS: TYLENOL 1000 MG PO ×2 (01:08→08:59)
--- NOTE | 2024-03-31 03:11 | PTCARENOTE ---
Assumed care for patient overnight, received report via daystnft RN. AAOx3. Normal sinus rhythm on tele. Pt given tylenol doesn't request further pain management medication. Pt denies abdominal pain just discomfort but this is chronic. Pt ate half
of her dinner, has a poor appetite. Pt receiving IV abx, tolerating. Pt up to the [facility] assist of 1. Pt rings appropriately. Call hernandez is within reach.
[2024-03-31 04:33] LABS: % Basophils 0.3 % (0-2); % Eosinophils 0.8 % (0-6); % Immature Granulocytes 0.4 % (0-0.5); % Lymphocytes 34.1 % (20.5-51.1); % Neutrophils 58.4 % (42.2-75.2); Absolute Eosinophils 0.1 10^3/uL (0-0.7); Absolute Lymphocytes 3.6 10^3/uL (1.2-3.4); Absolute Monocytes 0.6 10^3/uL (0.1-0.6); Absolute Neutrophils 6.1 10^3/uL (1.4-6.5); Hematocrit 38.1 % (37.0-47.0); Hemoglobin 13.5 g/dL (12.0-16.0); Mean Corp Hgb Conc. 35.4 g/dL (33.0-37.0); Mean Corpuscular Hgb 30.1 pg (27.0-31.0); Mean Corpuscular Volume 84.9 fL (81.0-99.0); Mean Platelet Volume 10.2 fL (7.4-10.4); Nucleated Red Blood Cells % 0 %; Platelet Count 262 10^3/uL (130-400); Red Blood Cell Count 4.49 10^6/uL (4.20-5.40); Red Cell Dist. Width 13.3 % (11.5-14.5); White Blood Cell Count 10.4 10^3/uL (4.8-10.8)
[2024-03-31 04:52] LABS: Lactic Acid 0.9 mmol/L (0.7-2.0)
[2024-03-31 04:53] LABS: Blood Urea Nitrogen 10 mg/dl (7-17); Calcium 9.9 mg/dl (8.4-10.2); Carbon Dioxide 27 mmol/L (22-30); Chloride 102 mmol/L (98-107); Estimated Creatinine Clearance 59 ml/min; Glucose 104 mg/dl (70-99); Potassium 2.9 mmol/L (3.5-5.1); Sodium 138 mmol/L (135-145); eGFR > 60.00
[2024-03-31] MEDS: KCL 270 MEQ IV (06:20)
[2024-03-31] MEDS: KCL 40 MEQ PO (06:20)
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
[2024-03-31] MEDS: SENOKOT 8.6 MG PO (08:56)
[2024-03-31] MEDS: OSCAL CAL 500 500 MG PO (08:56)
[2024-03-31] MEDS: NORVASC 10 MG PO (08:57)
[2024-03-31] MEDS: MIRALAX 17 GRAMS PO (08:58)
[2024-03-31] MEDS: PROTONIX 40 MG PO (08:58)
[2024-03-31] MEDS: TOPROL XL 50 MG PO (09:00)
[2024-03-31] MEDS: AMITIZA 24 MCG PO (09:00)
[2024-03-31] MEDS: BENTYL 10 MG PO (09:00)
[2024-03-31] MEDS: ASPIR LOW (ENTERIC COATED) 81 MG PO (09:01)
[2024-03-31] MEDS: CELEXA 20 MG PO (09:01)
[2024-03-31] MEDS: PROSCAR 2.5 MG PO (09:02)
[2024-03-31] MEDS: CLARITIN 10 MG PO (09:03)
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
[2024-03-31] MEDS: ROXICODONE 10 MG PO (10:25)
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
[2024-03-31] MEDS: KCL 20 MEQ PO (11:16)
[2024-03-31 14:13] LABS: Potassium 3.9 mmol/L (3.5-5.1)
--- NOTE | 2024-03-31 16:09 | CM ---
MD entered order for discharge.
As per care port [facility] accepted pt for VN .
DC to home .
PLAN Home with VN
== END 2024-03-31 18:25 | disposition home health service (06) | DRG 394 ==
LOC: IMU 10:12
PROVIDERS: Student in an Organized Health Care Education/Training Program; ADMITTING PHYSICIAN Internal Medicine; ATTENDING PHYSICIAN Hospitalist; CONSULT PHYSICIAN Internal Medicine; EMERGENCY PHYSICIAN Emergency Medicine; FAMILY PHYSICIAN Internal Medicine; OTHER PHYSICIAN Surgery Vascular Surgery
DX: K55.9 Vascular disorder of intestine, unspecified (principal); E87.21 Acute metabolic acidosis; K56.609 Unspecified intestinal obstruction, unspecified as to partial versus complete obstruction; Z87.891 Personal history of nicotine dependence; I10 Essential (primary) hypertension; F32.A Depression, unspecified; F41.9 Anxiety disorder, unspecified; K58.1 Irritable bowel syndrome with constipation; E87.6 Hypokalemia; E78.00 Pure hypercholesterolemia, unspecified
CPT/HCPCS: 74022; 74177; 80048; 80053; 81003; 81015; 82962; 83605; 83690; 83735; 84132; 85025; 96361; 96372; 96374; 96376; 97162; 97166; 99285; Q9967

== ENCOUNTER → 2024-04-17 15:53 | Outpatient (REF) | payer MEDICARE, OTHER, SELFPAY | LOC: WDC 15:53 | PROVIDERS: ATTENDING PHYSICIAN Obstetrics & Gynecology Gynecology; FAMILY PHYSICIAN Internal Medicine | DX: Z12.31 Encounter for screening mammogram for malignant neoplasm of breast (principal) | CPT/HCPCS: 77063; 77067 ==

== ENCOUNTER 2024-04-19 22:23 | Observation (INO) | payer MEDICARE, OTHER, SELFPAY ==
[2024-04-19 17:48] VITALS: BP 158/100
[2024-04-19 19:16] LABS: % Basophils 0.1 % (0-2); % Eosinophils 0.1 % (0-6); % Immature Granulocytes 0.4 % (0-0.5); % Lymphocytes 9.4 % (20.5-51.1); % Monocytes 7.3 % (1.7-9.3); % Neutrophils 82.7 % (42.2-75.2); Absolute Immature Granulocytes 0.1 10^3/uL (0-0.05); Absolute Lymphocytes 1.5 10^3/uL (1.2-3.4); Absolute Monocytes 1.1 10^3/uL (0.1-0.6); Absolute Neutrophils 12.8 10^3/uL (1.4-6.5); Hematocrit 43.3 % (37.0-47.0); Hemoglobin 15.7 g/dL (12.0-16.0); Mean Corp Hgb Conc. 36.3 g/dL (33.0-37.0); Mean Corpuscular Hgb 30.3 pg (27.0-31.0); Mean Corpuscular Volume 83.4 fL (81.0-99.0); Mean Platelet Volume 10.4 fL (7.4-10.4); Nucleated Red Blood Cells % 0 %; Platelet Count 338 10^3/uL (130-400); Red Blood Cell Count 5.19 10^6/uL (4.20-5.40); Red Cell Dist. Width 13.2 % (11.5-14.5); White Blood Cell Count 15.5 10^3/uL (4.8-10.8)
[2024-04-19 19:28] LABS: AST (SGOT) 22 U/L (14-36); Albumin 5.4 g/dl (3.5-5.0); Alkaline Phosphatase 70 U/L (38-126); Blood Urea Nitrogen 19 mg/dl (7-17); Calcium 11.1 mg/dl (8.4-10.2); Carbon Dioxide 25 mmol/L (22-30); Chloride 96 mmol/L (98-107); Glucose 133 mg/dl (70-99); Lipase 48 U/L (23-300); Potassium 3.1 mmol/L (3.5-5.1); Sodium 140 mmol/L (135-145); Total Bilirubin 0.6 mg/dl (0.2-1.3); eGFR > 60.00
[2024-04-19 19:37] LABS: ALT (SGPT) 31 U/L (0-35)
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
[2024-04-19] MEDS: DILAUDID 1 MG IV (20:50)
[2024-04-19] MEDS: PROTONIX IV 40 MG IV (20:51)
[2024-04-19] MEDS: ZOFRAN 4 MG IV (20:51)
[2024-04-19 20:57] VITALS: BMI 23.5
[2024-04-19 21:01] VITALS: BP 105/66
[2024-04-19 21:02] VITALS: BP 105/66
[2024-04-19 21:29] LABS: Troponin I < 0.012 ng/ml
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
[2024-04-19] MEDS: KCL ELIXIR 40 MEQ PO (21:58)
[2024-04-19] MEDS: NSS with KCL 40 MEQ 1000 IV (21:58)
[2024-04-19 22:00] VITALS: BP 100/70
[2024-04-20] MEDS: ZYRTEC PO
[2024-04-20] MEDS: SENOKOT PO
[2024-04-20] MEDS: TYLENOL PO
[2024-04-20 00:19] VITALS: BP 125/78
[2024-04-20 00:34] VITALS: BP 125/78
[2024-04-20 05:54] LABS: Hematocrit 36.6 % (37.0-47.0); Hemoglobin 12.8 g/dL (12.0-16.0); Mean Corpuscular Hgb 30.2 pg (27.0-31.0); Mean Corpuscular Volume 86.3 fL (81.0-99.0); Mean Platelet Volume 10.7 fL (7.4-10.4); Platelet Count 249 10^3/uL (130-400); Red Blood Cell Count 4.24 10^6/uL (4.20-5.40); Red Cell Dist. Width 13.4 % (11.5-14.5); White Blood Cell Count 9.7 10^3/uL (4.8-10.8)
[2024-04-20 06:01] LABS: Blood Urea Nitrogen 29 mg/dl (7-17); Calcium 9.7 mg/dl (8.4-10.2); Carbon Dioxide 27 mmol/L (22-30); Chloride 102 mmol/L (98-107); Estimated Creatinine Clearance 30 ml/min; Glucose 104 mg/dl (70-99); Magnesium 1.8 mg/dl (1.6-2.3); Potassium 4.2 mmol/L (3.5-5.1); Sodium 141 mmol/L (135-145)
[2024-04-20 07:50] VITALS: BP 121/73
[2024-04-20] MEDS: TYLENOL 1000 MG PO ×2 (07:55→16:21)
[2024-04-20] MEDS: CRESTOR 20 MG PO (07:56)
[2024-04-20] MEDS: PROTONIX 40 MG PO (07:56)
[2024-04-20] MEDS: PROSCAR 2.5 MG PO (07:56)
[2024-04-20] MEDS: ASPIR LOW (ENTERIC COATED) 81 MG PO (07:56)
[2024-04-20] MEDS: NORVASC 10 MG PO (07:57)
[2024-04-20] MEDS: TOPROL XL 50 MG PO (07:57)
[2024-04-20] MEDS: LIDOCAINE 4% PATCH 1 PATCH TOPICAL (07:58)
--- NOTE | 2024-04-20 10:32 | PTCARENOTE ---
Nausea improved. Tolerated clear liquid breakfast. Pain controlled w/ Tylenol at this time.
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
[2024-04-20] MEDS: CLARITIN 10 MG PO (11:38)
[2024-04-20] MEDS: ZYRTEC 10 MG PO (11:38)
[2024-04-20] MEDS: CELEXA 20 MG PO (11:39)
[2024-04-20 12:42] VITALS: BMI 22.4
[2024-04-20 12:44] VITALS: BP 126/65
[2024-04-20] MEDS: NEURONTIN 100 MG PO (13:39)
[2024-04-20] MEDS: NSS with KCL 40 MEQ 1000 IV (13:42)
[2024-04-20 15:11] VITALS: BP 108/56
[2024-04-20] MEDS: NEURONTIN 200 MG PO ×2 (16:21→21:06)
[2024-04-20] MEDS: SENOKOT 17.2 MG PO (21:06)
[2024-04-20] MEDS: BENTYL 10 MG PO (21:08)
[2024-04-20 23:51] VITALS: BP 115/53
[2024-04-21] MEDS: TYLENOL 1000 MG PO ×3 (00:14→16:13)
[2024-04-21] MEDS: NSS with KCL 40 MEQ IV (01:51)
[2024-04-21 07:39] LABS: Blood Urea Nitrogen 19 mg/dl (7-17); Calcium 9.6 mg/dl (8.4-10.2); Carbon Dioxide 28 mmol/L (22-30); Chloride 105 mmol/L (98-107); Estimated Creatinine Clearance 51 ml/min; Glucose 89 mg/dl (70-99); Potassium 4.3 mmol/L (3.5-5.1); Sodium 141 mmol/L (135-145); eGFR > 60.00
[2024-04-21 07:40] VITALS: BP 143/68
[2024-04-21] MEDS: LIDOCAINE 4% PATCH 1 PATCH TOPICAL (08:25)
[2024-04-21] MEDS: CELEXA 20 MG PO (08:26)
[2024-04-21] MEDS: PROTONIX 40 MG PO (08:26)
[2024-04-21] MEDS: CLARITIN 10 MG PO (08:27)
[2024-04-21] MEDS: NORVASC 10 MG PO (08:27)
[2024-04-21] MEDS: NEURONTIN 200 MG PO ×2 (08:28→16:13)
[2024-04-21] MEDS: ASPIR LOW (ENTERIC COATED) 81 MG PO (08:28)
[2024-04-21] MEDS: CRESTOR 20 MG PO (08:29)
[2024-04-21] MEDS: PROSCAR 2.5 MG PO (08:31)
[2024-04-21] MEDS: TOPROL XL 50 MG PO (08:31)
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
--- NOTE | 2024-04-21 10:19 | W.DS.TRANS ---
DC Summary - Pig Sticker
-
Discharge Instructions:
Discharge Diagnosis/Procedures Intractable vomiting
Diet Regular
Activity As tolerated
Driving Restrictions As prior to admission
Bathing Restrictions None
Instructions:
Stand-Alone Forms:
Changes to Home Medications: No
Discharge Medications:
DC Medications w/original date entered in [facility] [place]
aspirin 81 mg tablet,delayed release 81 mg PO DAILY Blood clot prevention/tx 11/18/14
rosuvastatin 20 mg tablet 20 mg PO DAILY High cholesterol 11/18/14
amlodipine 10 mg tablet 10 mg PO DAILY Heart disease/condition 11/28/20
calcium carbonate 600 mg PO DAILY Supplement 11/28/20
citalopram 20 mg tablet 20 mg PO DAILY mental health 01/13/21
metoprolol succinate 50 mg tablet,extended release 24 hr (Toprol XL) 50 mg PO DAILY Blood pressure 04/17/22
cetirizine 10 mg tablet (Zyrtec) 10 mg PO HS Allergies 09/08/22
fexofenadine 180 mg tablet 180 mg PO DAILY Allergies 09/08/22
pantoprazole 40 mg tablet,delayed release 40 mg PO DAILY GERD 09/08/22
sennosides 8.6 mg tablet (Senna Laxative) 17.2 mg (2 x 8.6 mg) PO HS #0 tabs 02/02/24
biotin 800 mcg tablet 800 mcg PO DAILY Supplement 03/19/24
cholecalciferol (vit D3) 1,000 unit-vitamin K2 (MK4) 100 mcg tablet 1 tab PO DAILY Supplement 03/19/24
clonazepam 1 mg tablet (Klonopin) 1 mg PO DAILYPRN PRN anxiety 03/19/24
finasteride 5 mg tablet 2.5 mg PO DAILY Urinary Issue 03/19/24
acetaminophen 500 mg tablet (Tylenol Extra Strength) 1,000 mg PO Q8H 04/19/24
dicyclomine 10 mg capsule 10 mg PO QIDPRN PRN abdominal pain 04/19/24
gabapentin 100 mg capsule 200 mg (2 x 100 mg) PO TID #90 caps 04/21/24
lidocaine 4 % topical patch 1 patch topical DAILY #7 ea 04/21/24
Home Medication Changes
Pending Results: No
[2024-04-21] MEDS: DULCOLAX 10 MG RECTAL (10:25)
--- NOTE | 2024-04-21 12:33 | CM ---
ESTHER met with Dami to provide MISTRY. Beauhannah was unhappy about this, stating 'the doctor just discharged me!'. I explained that since her hospitalization was not anticipated to be a long stay, the doctor felt observing her was appropriate, as she did
not require inpatient level of care.
Dami would not sign the letter at the time of my visit. I left a copy of the form with Dami.
Plan: Discharge to home with no anticipated needs.
--- NOTE | 2024-04-21 13:37 | CM ---
Addendum entered by Carmelina Lopez 04/21/24 16:14:
CM met with Dami again; she is concerned that she has still not had a bowel movement despite a suppository, an enema, and something orally. CM offered home care services which would provide an RN who would be able to check bowel sounds at home, as
well as contact PCP for additional orders once she is home.
Case discussed with RN; advised to send me a TT if Dami changes her mind about home care services which I can arrange in AM if needed.
Original Note:
Reviewed chart, met with Dami again to complete IA. She is still unhappy about the OBS status.
Dami lives in a multi story home with one step to enter. She is able to perform her ADLs, bathing, dressing and ambulates short distances without a device, however she has a cane and a walker if needed as well as a shower chair and a raised toilet
seat. She has support through her son and daughter in law however they do not live locally. Dami's niece is local and helpful with transportation. She has a person who helps her at home a few days a week with cooking, cleaning, laundry and other
insurance billing clerk.
[facility]; HX of SNF at [facility].
Pharmacy: [facility] for all of her medications.
PCP: Rajni Granados.
Plan: Case management will continue to follow and assist with discharge planning.
[2024-04-21] MEDS: FLEET MINERAL OIL ENEMA 133 ML RECTAL (14:01)
[2024-04-21] MEDS: CITROMA 300 ML PO (14:38)
[2024-04-21 14:39] LABS: Intact PTH 107.9 pg/ml (13.6-85.8)
[2024-04-21 15:40] VITALS: BP 129/70
--- NOTE | 2024-04-21 19:25 | PTCARENOTE ---
Pt given Suppository, enema without bowel movement. Spoke with MD, pt is discharged and cannot stay overnight for constipation.Pt given mag citrate. Ambulated in hallway, ordered prune juice per RN recommendation. Pt passing gas and having
'rumblings' Pt had some clear liquid pass (enema?) Pt instructed to take senna tonight, continue to move around, hydrate once home. Staff escort in wheelchair left in [employer]er.
== END 2024-04-21 19:22 | disposition home or self-care (01) ==
LOC: 4 EAST ACU 22:23
PROVIDERS: Clinical Nurse Specialist Family Health; Emergency Medicine; Physician Assistant Medical; ADMITTING PHYSICIAN Hospitalist; ATTENDING PHYSICIAN Hospitalist; EMERGENCY PHYSICIAN Emergency Medicine; FAMILY PHYSICIAN Internal Medicine
DX: R11.2 Nausea with vomiting, unspecified (principal); R10.9 Unspecified abdominal pain; G89.29 Other chronic pain; F12.90 Cannabis use, unspecified, uncomplicated; I10 Essential (primary) hypertension; S22.080D Wedge compression fracture of T11-T12 vertebra, subsequent encounter for fracture with routine healing; F41.9 Anxiety disorder, unspecified; F32.A Depression, unspecified; R00.0 Tachycardia, unspecified; N17.9 Acute kidney failure, unspecified; K86.1 Other chronic pancreatitis; V89.2XXS Person injured in unspecified motor-vehicle accident, traffic, sequela; K59.00 Constipation, unspecified; E83.52 Hypercalcemia; E87.6 Hypokalemia; E66.9 Obesity, unspecified; Z60.2 Problems related to living alone; Z90.49 Acquired absence of other specified parts of digestive tract; Z87.891 Personal history of nicotine dependence; Z91.030 Bee allergy status; Z91.040 Latex allergy status; Z88.8 Allergy status to other drugs, medicaments and biological substances
CPT/HCPCS: 80048; 80053; 83690; 83735; 83970; 84484; 85025; 85027; 93005; 96374; 96375; 97162; 99285; G0378

== ENCOUNTER → 2024-05-09 13:26 | Outpatient (REF) | payer MEDICARE, OTHER, SELFPAY ==
[2024-05-09 14:31] LABS: Ionized Calcium 1.25 mMOL/L (1.15-1.33)
[2024-05-09 14:37] LABS: Urine Calcium 13.8 mg/dl
[2024-05-09 14:49] LABS: 24 Hour Urine Calcium 172.5 mg/day; 24 Hour Urine Total Volume 1250 ml
[2024-05-09 15:20] LABS: ALT (SGPT) 37 U/L (0-35); AST (SGOT) 25 U/L (14-36); Albumin 4.8 g/dl (3.5-5.0); Alkaline Phosphatase 60 U/L (38-126); Blood Urea Nitrogen 21 mg/dl (7-17); Calcium 10.5 mg/dl (8.4-10.2); Carbon Dioxide 29 mmol/L (22-30); Chloride 99 mmol/L (98-107); Glucose 92 mg/dl (70-99); HDL Cholesterol 51 mg/dl; LDL Cholesterol, Calculated 73 mg/dl; Potassium 4.1 mmol/L (3.5-5.1); Sodium 143 mmol/L (135-145); Total Bilirubin 0.4 mg/dl (0.2-1.3); Total Cholesterol 177 mg/dl (50-199); Total Protein 7.1 g/dl (6.3-8.2); Triglyceride 265 mg/dl (10-149); Very Low Density Lipoprotein 53 mg/dl (0-30); eGFR > 60.00
[2024-05-09 15:25] LABS: Calcium 10.4 mg/dl (8.4-10.2); HDL Cholesterol 53 mg/dl
[2024-05-09 15:48] LABS: TSH 1.71 uIU/ml (0.47-4.68)
[2024-05-10 10:19] LABS: Glycohemoglobin (HgbA1c) 5.1 % (4.0-5.6)
[2024-05-11 12:28] LABS: Intact PTH 75.2 pg/ml (13.6-85.8)
== END ==
LOC: REG 13:26
PROVIDERS: ATTENDING PHYSICIAN Internal Medicine Endocrinology, Diabetes & Metabolism; FAMILY PHYSICIAN Internal Medicine
DX: E83.52 Hypercalcemia (principal); E78.5 Hyperlipidemia, unspecified; R73.01 Impaired fasting glucose; M81.0 Age-related osteoporosis without current pathological fracture; E21.0 Primary hyperparathyroidism; E55.9 Vitamin D deficiency, unspecified
CPT/HCPCS: 36415; 80053; 80061; 81050; 82306; 82330; 82340; 83036; 83718; 83970; 84439; 84443

== ENCOUNTER → 2024-09-18 11:26 | Outpatient (REF) | payer MEDICARE, OTHER, SELFPAY ==
[2024-09-18 12:49] LABS: % Basophils 0.2 % (0-2); % Eosinophils 1.2 % (0-6); % Immature Granulocytes 0.2 % (0-0.5); % Lymphocytes 27.8 % (20.5-51.1); % Monocytes 4.5 % (1.7-9.3); % Neutrophils 66.1 % (42.2-75.2); Absolute Eosinophils 0.1 10^3/uL (0-0.7); Absolute Lymphocytes 2.4 10^3/uL (1.2-3.4); Absolute Monocytes 0.4 10^3/uL (0.1-0.6); Absolute Neutrophils 5.6 10^3/uL (1.4-6.5); Hematocrit 42.4 % (37.0-47.0); Hemoglobin 14.8 g/dL (12.0-16.0); Mean Corp Hgb Conc. 34.9 g/dL (33.0-37.0); Mean Corpuscular Hgb 31.1 pg (27.0-31.0); Mean Corpuscular Volume 89.1 fL (81.0-99.0); Mean Platelet Volume 11.6 fL (7.4-10.4); Nucleated Red Blood Cells % 0 %; Platelet Count 229 10^3/uL (130-400); Red Blood Cell Count 4.76 10^6/uL (4.20-5.40); Red Cell Dist. Width 12.8 % (11.5-14.5); White Blood Cell Count 8.5 10^3/uL (4.8-10.8)
[2024-09-18 13:33] LABS: ALT (SGPT) 24 U/L (0-35); AST (SGOT) 23 U/L (14-36); Albumin 4.5 g/dl (3.5-5.0); Alkaline Phosphatase 73 U/L (38-126); Amylase 109 U/L (30-110); Blood Urea Nitrogen 23 mg/dl (7-17); Calcium 10.5 mg/dl (8.4-10.2); Carbon Dioxide 30 mmol/L (22-30); Chloride 102 mmol/L (98-107); Glucose 101 mg/dl (70-99); Lipase 99 U/L (23-300); Potassium 4.2 mmol/L (3.5-5.1); Sodium 140 mmol/L (135-145); Total Bilirubin 0.6 mg/dl (0.2-1.3); eGFR > 60.00
== END ==
LOC: REG 11:26
PROVIDERS: ATTENDING PHYSICIAN Internal Medicine; REFERRING PHYSICIAN Internal Medicine Endocrinology, Diabetes & Metabolism
DX: K76.0 Fatty (change of) liver, not elsewhere classified (principal); K85.00 Idiopathic acute pancreatitis without necrosis or infection; R79.89 Other specified abnormal findings of blood chemistry; E87.6 Hypokalemia
CPT/HCPCS: 36415; 80053; 82150; 83690; 85025

== ENCOUNTER → 2024-09-20 10:34 | Outpatient (REF) | payer MEDICARE, OTHER, SELFPAY | LOC: DHSLP 10:34 | PROVIDERS: ATTENDING PHYSICIAN Internal Medicine | DX: G47.33 Obstructive sleep apnea (adult) (pediatric) (principal) | CPT/HCPCS: 95800 ==

== ENCOUNTER → 2024-09-26 08:46 | Outpatient (REF) | payer MEDICARE, OTHER, SELFPAY ==
[2024-09-26 10:57] LABS: Free T4 1.01 ng/dl (0.78-2.19); Vitamin D, 25-OH*** 51.5 ng/mL (30-80)
[2024-09-26 10:59] LABS: ALT (SGPT) 26 U/L (0-35); AST (SGOT) 24 U/L (14-36); Albumin 4.7 g/dl (3.5-5.0); Alkaline Phosphatase 84 U/L (38-126); Blood Urea Nitrogen 23 mg/dl (7-17); Calcium 10.4 mg/dl (8.4-10.2); Carbon Dioxide 31 mmol/L (22-30); Chloride 101 mmol/L (98-107); Glucose 97 mg/dl (70-99); Sodium 144 mmol/L (135-145); Total Bilirubin 0.6 mg/dl (0.2-1.3); eGFR > 60.00
[2024-09-26 11:55] LABS: Intact PTH 73.6 pg/ml (13.6-85.8)
== END ==
LOC: REG 08:46
PROVIDERS: ATTENDING PHYSICIAN Internal Medicine Endocrinology, Diabetes & Metabolism; FAMILY PHYSICIAN Internal Medicine
DX: E21.0 Primary hyperparathyroidism (principal); E55.9 Vitamin D deficiency, unspecified; M81.0 Age-related osteoporosis without current pathological fracture; R82.5 Elevated urine levels of drugs, medicaments and biological substances; I10 Essential (primary) hypertension
CPT/HCPCS: 36415; 80053; 82306; 83970; 84439; 84443

== ENCOUNTER → 2024-11-08 15:46 | Outpatient (REF) | payer MEDICARE, OTHER, SELFPAY | LOC: RAD 15:46 | PROVIDERS: ATTENDING PHYSICIAN Internal Medicine Critical Care Medicine; FAMILY PHYSICIAN Internal Medicine | DX: Z87.891 Personal history of nicotine dependence (principal) | CPT/HCPCS: 71271 ==

== ENCOUNTER → 2025-03-11 13:27 | Outpatient (REF) | payer MEDICARE, OTHER, SELFPAY | LOC: RAD 13:27 | PROVIDERS: ATTENDING PHYSICIAN Internal Medicine Endocrinology, Diabetes & Metabolism; FAMILY PHYSICIAN Internal Medicine | DX: M81.0 Age-related osteoporosis without current pathological fracture (principal) | CPT/HCPCS: 77080 ==

== ENCOUNTER → 2025-03-15 09:47 | Outpatient (REF) | payer MEDICARE, OTHER, SELFPAY | LOC: RAD 09:47 | PROVIDERS: ATTENDING PHYSICIAN Internal Medicine Critical Care Medicine; FAMILY PHYSICIAN Internal Medicine | DX: R91.1 Solitary pulmonary nodule (principal); Z87.891 Personal history of nicotine dependence | CPT/HCPCS: 71250 ==

== ENCOUNTER → 2025-04-18 14:55 | Outpatient (REF) | payer MEDICARE, OTHER, SELFPAY | LOC: WDC 14:55 | PROVIDERS: ATTENDING PHYSICIAN Obstetrics & Gynecology; FAMILY PHYSICIAN Internal Medicine | DX: Z12.31 Encounter for screening mammogram for malignant neoplasm of breast (principal) | CPT/HCPCS: 77063; 77067 ==